=== PATIENT | male | born 1970 | race Caucasian/White ===

== ENCOUNTER 2016-09-18 03:15 | Inpatient (IN) | payer MEDICAID, OTHER ==
[~2016-09-18] VITALS: Ht 175.3 cm; Wt 120.2 kg
[2016-09-18 04:21] LABS: BASOPHILS # (AUTO) 0.04 K/uL (0.00-0.20); BASOPHILS % (AUTO) 0.4 % (0.0-2.0); EOSINOPHILS # (AUTO) 0.28 K/uL (0.00-0.70); EOSINOPHILS % (AUTO) 2.92 % (1.0-6.0); HEMATOCRIT 46.1 % (41-53); HEMOGLOBIN 15.8 g/dL (13.5-17.5); LYMPHOCYTES % (AUTO) 31.2 % (22.0-44.0); MEAN CORPUSCULAR HEMOGLOBIN 31.2 pg (26.0-34.0); MEAN CORPUSCULAR HGB CONC 34.4 G/dL (31.0-37.0); MEAN CORPUSCULAR VOLUME 91 fL (80-100); MONOCYTES # (AUTO) 0.6 K/uL (0.1-1.0); MONOCYTES % (AUTO) 6.6 % (2.0-9.0); NEUTROPHILS # (AUTO) 5.7 K/uL (1.8-7.7); NEUTROPHILS % (AUTO) 58.9 % (40.0-70.0); PLATELET COUNT (AUTO) 217 K/uL (150-450); RED BLOOD CELL COUNT(AUTO) 5.08 MIL/uL (4.50-5.90); RED CELL DISTRIBUTION WIDTH 13.2 % (11.5-14.5); WHITE BLOOD COUNT (AUTO) 9.6 K/uL (4.5-11.0)
[2016-09-18 04:28] LABS: ANION GAP 10 mmol/L (8-16); CALCIUM, TOTAL 8.6 mg/dL (8.8-10.5); CARBON DIOXIDE 26 mmol/L (22-29); CHLORIDE 103 mmol/L (98-107); CREATININE 0.98 mg/dL (0.60-1.30); GLOMERULAR FILTR. RATE CALC > 60 mL/min (>60); POTASSIUM 3.7 mmol/L (3.5-5.1); SODIUM SERUM 139 mmol/L (136-145); UREA NITROGEN, BLOOD 16 mg/dL (7-18)
[2016-09-18 04:35] LABS: ALANINE AMINOTRANSFERASE 35 U/L (12-78); ALBUMIN 3.9 g/dL (3.4-5.0); ASPARTATE AMINOTRANSFERASE 40 U/L (15-37); BILIRUBIN,TOTAL 0.4 mg/dL (0.1-1.0); TOTAL PROTEIN, SERUM 6.9 g/dL (6.4-8.2)
[2016-09-18 06:01] VITALS: BP 154/91
[2016-09-18 08:29] VITALS: BP 125/68
[2016-09-18 09:12] LABS: CHOL/HDL RATIO 5.2 (4.2-7.3)
[2016-09-18] MEDS: HALOPERIDOL 5 MG TABLET PO PRN (09:14)
[2016-09-18] MEDS: LORazepam 2 MG TABLET PO PRN (09:14)
[2016-09-18] MEDS ORDERED: ONDANSETRON HCL 4 MG TABLET PO PRN (09:15)
[2016-09-18] MEDS ORDERED: LOPERAMIDE HCL 2 MG CAPSULE PO PRN (09:15)
[2016-09-18] MEDS ORDERED: BENZOCAINE/MENTHOL LOZENGE MM PRN (09:15)
[2016-09-18] MEDS ORDERED: MAG HYDROX/AL HYDROX/SIMETH ES 30 ML SUSPENSION UDCUP PO PRN (09:15)
[2016-09-18] MEDS ORDERED: MAGNESIUM HYDROXIDE SUSPENSION 30 ML UDCUP PO PRN (09:15)
[2016-09-18] MEDS ORDERED: PETROLATUM,WHITE 71 GM JELLY TP PRN (09:15)
[2016-09-18] MEDS ORDERED: ALBUTEROL SULFATE HFA 90 MCG/PUFF 8 GM INHALER IH PRN (09:15)
[2016-09-18] MEDS ORDERED: ACETAMINOPHEN 325 MG TABLET PO PRN (09:15)
[2016-09-18] MEDS ORDERED: IBUPROFEN 600 MG TABLET PO PRN (09:15)
[2016-09-18] MEDS ORDERED: BACITRACIN 28.4 GM OINTMENT TP PRN (09:15)
[2016-09-18] MEDS ORDERED: CloNIDine HCL 0.1 MG TABLET PO PRN (09:15)
[2016-09-18 16:00] VITALS: BP 124/72
[2016-09-18] MEDS: OLANZapine 10 MG TABLET PO SCH (20:48)
[2016-09-18] MEDS: DIVALPROEX SODIUM 250 MG DR TABLET PO SCH (20:48)
[2016-09-19 05:55] VITALS: BP 128/75
[2016-09-19 08:14] LABS: BASOPHILS % (AUTO) 0.7 % (0.0-2.0); EOSINOPHILS % (AUTO) 5.1 % (1.0-6.0); HEMATOCRIT 50.5 % (41-53); HEMOGLOBIN 16.6 g/dL (13.5-17.5); LYMPHOCYTES # (AUTO) 3.5 K/uL (1.0-4.8); LYMPHOCYTES % (AUTO) 40.9 % (22.0-44.0); MEAN CORPUSCULAR HEMOGLOBIN 30.6 pg (26.0-34.0); MEAN CORPUSCULAR HGB CONC 32.8 G/dL (31.0-37.0); MEAN CORPUSCULAR VOLUME 93 fL (80-100); MONOCYTES # (AUTO) 0.5 K/uL (0.1-1.0); MONOCYTES % (AUTO) 5.5 % (2.0-9.0); NEUTROPHILS # (AUTO) 4.1 K/uL (1.8-7.7); NEUTROPHILS % (AUTO) 47.8 % (40.0-70.0); PLATELET COUNT (AUTO) 199 K/uL (150-450); RED BLOOD CELL COUNT(AUTO) 5.41 MIL/uL (4.50-5.90); RED CELL DISTRIBUTION WIDTH 13.4 % (11.5-14.5); WHITE BLOOD COUNT (AUTO) 8.6 K/uL (4.5-11.0)
[2016-09-19 08:21] VITALS: BP 111/67
[2016-09-19 08:39] LABS: ALANINE AMINOTRANSFERASE 42 U/L (12-78); ALBUMIN 3.9 g/dL (3.4-5.0); ANION GAP 8 mmol/L (8-16); ASPARTATE AMINOTRANSFERASE 45 U/L (15-37); BILIRUBIN,TOTAL 0.5 mg/dL (0.1-1.0); CALCIUM, TOTAL 8.7 mg/dL (8.8-10.5); CARBON DIOXIDE 28 mmol/L (22-29); CHLORIDE 104 mmol/L (98-107); CREATININE 1.08 mg/dL (0.60-1.30); GLOMERULAR FILTR. RATE CALC > 60 mL/min (>60); POTASSIUM 3.9 mmol/L (3.5-5.1); SODIUM SERUM 140 mmol/L (136-145); THYROID STIMULATING HORMONE 1.91 uIU/mL (0.36-3.74); TOTAL PROTEIN, SERUM 7.2 g/dL (6.4-8.2); UREA NITROGEN, BLOOD 17 mg/dL (7-18); VALPROIC ACID 65 mcg/mL (50-100)
[2016-09-19] MEDS: LORazepam 2 MG TABLET PO PRN (08:53)
[2016-09-19] MEDS: HALOPERIDOL 5 MG TABLET PO PRN (08:54)
[2016-09-19 16:04] VITALS: BP 131/65
[2016-09-19] MEDS: OLANZapine 10 MG TABLET PO SCH (20:15)
[2016-09-19] MEDS: DIVALPROEX SODIUM 250 MG DR TABLET PO SCH (20:15)
[2016-09-20] MEDS: LORazepam 2 MG TABLET PO PRN ×3 (00:08→20:28)
[2016-09-20 00:11] VITALS: BP 120/75
[2016-09-20 08:25] VITALS: BP 114/67
[2016-09-20] MEDS: HALOPERIDOL 5 MG TABLET PO PRN (09:30)
[2016-09-20 16:05] VITALS: BP 118/68
[2016-09-20] MEDS: OLANZapine 10 MG TABLET PO SCH (20:28)
[2016-09-20] MEDS: DIVALPROEX SODIUM 250 MG DR TABLET PO SCH (20:28)
[2016-09-20] MEDS: ZOLPIDEM TARTRATE 10 MG TABLET PO PRN (22:52)
[2016-09-21 06:40] VITALS: BP 115/60
[2016-09-21 08:04] VITALS: BP 133/67
[2016-09-21] MEDS: LORazepam 2 MG TABLET PO PRN ×2 (15:13→22:18)
[2016-09-21 16:00] VITALS: BP 122/65
[2016-09-21] MEDS: HALOPERIDOL 5 MG TABLET PO PRN (17:16)
[2016-09-21] MEDS: DIVALPROEX SODIUM 250 MG DR TABLET PO SCH (20:37)
[2016-09-21] MEDS: OLANZapine 10 MG TABLET PO SCH (20:38)
[2016-09-22 05:58] VITALS: BP 111/76
[2016-09-22 08:04] VITALS: BP 109/58
[2016-09-22 16:00] VITALS: BP 112/67
[2016-09-22] MEDS: LORazepam 2 MG TABLET PO PRN (20:08)
[2016-09-22] MEDS: DIVALPROEX SODIUM 250 MG DR TABLET PO SCH (20:08)
[2016-09-22] MEDS: OLANZapine 10 MG TABLET PO SCH (20:08)
[2016-09-23] MEDS: LORazepam 2 MG TABLET PO PRN (00:20)
[2016-09-23 01:14] VITALS: BP 110/64
[2016-09-23] MEDS: ZOLPIDEM TARTRATE 10 MG TABLET PO PRN (01:37)
[2016-09-23 08:23] VITALS: BP 110/77
[2016-09-23] MEDS ORDERED: OLAN20TA17 PO (11:18)
[2016-09-23] MEDS ORDERED: DIVA500T35 PO (11:19)
== END 2016-09-23 13:25 | disposition home or self-care (01) | DRG 750 ==
LOC: EEVIPCON 03:16 → EMS 03:16 → B3A 04:52
PROVIDERS: ADMIT Psychiatry & Neurology Child & Adolescent Psychiatry; ATTEND Psychiatry & Neurology Psychiatry
DX: F20.0 Paranoid schizophrenia (principal); E55.9 Vitamin D deficiency, unspecified; K59.00 Constipation, unspecified; Z72.0 Tobacco use; G47.00 Insomnia, unspecified
CPT/HCPCS: 82306; 84439; 84443; 99285; G0480

== ENCOUNTER 2016-11-15 04:44 | Emergency (ER) | payer MEDICAID, OTHER ==
[~2016-11-15] VITALS: Ht 172.7 cm; Wt 90.9 kg
[~2016-11-15 04:44] MED LIST: DIVA500T35 PO; OLAN20TA17 PO
[2016-11-15] MEDS ORDERED: LORazepam 1 MG TABLET PO ONE (05:30)
[2016-11-15] MEDS ORDERED: OLANZapine 5 MG TABLET PO ONE (05:30)
[2016-11-15 05:44] LABS: BASOPHILS % (AUTO) 0.4 % (0.0-2.0); EOSINOPHILS % (AUTO) 0.5 % (1.0-6.0); HEMATOCRIT 45.8 % (41-53); LYMPHOCYTES # (AUTO) 1.8 K/uL (1.0-4.8); LYMPHOCYTES % (AUTO) 18.9 % (22.0-44.0); MEAN CORPUSCULAR HEMOGLOBIN 31.8 pg (26.0-34.0); MEAN CORPUSCULAR HGB CONC 34.9 G/dL (31.0-37.0); MEAN CORPUSCULAR VOLUME 91 fL (80-100); MONOCYTES # (AUTO) 0.9 K/uL (0.1-1.0); MONOCYTES % (AUTO) 9.3 % (2.0-9.0); NEUTROPHILS # (AUTO) 6.6 K/uL (1.8-7.7); NEUTROPHILS % (AUTO) 70.9 % (40.0-70.0); PLATELET COUNT (AUTO) 242 K/uL (150-450); RED BLOOD CELL COUNT(AUTO) 5.02 MIL/uL (4.50-5.90); WHITE BLOOD COUNT (AUTO) 9.3 K/uL (4.5-11.0)
[2016-11-15 05:48] LABS: ANION GAP 13 mmol/L (8-16); CALCIUM, TOTAL 9.2 mg/dL (8.8-10.5); CARBON DIOXIDE 23 mmol/L (22-29); CHLORIDE 102 mmol/L (98-107); CREATININE 1.11 mg/dL (0.60-1.30); GLOMERULAR FILTR. RATE CALC > 60 mL/min (>60); POTASSIUM 3.3 mmol/L (3.5-5.1); SODIUM SERUM 138 mmol/L (136-145); UREA NITROGEN, BLOOD 19 mg/dL (7-18)
[2016-11-15 05:54] LABS: ALANINE AMINOTRANSFERASE 35 U/L (12-78); ALBUMIN 4.1 g/dL (3.4-5.0); ASPARTATE AMINOTRANSFERASE 20 U/L (15-37); BILIRUBIN,TOTAL 0.5 mg/dL (0.1-1.0); TOTAL PROTEIN, SERUM 7.2 g/dL (6.4-8.2); VALPROIC ACID < 3 mcg/mL (50-100)
[2016-11-15 06:14] VITALS: BP 129/82
[2016-11-15] MEDS ORDERED: POTASSIUM CHLORIDE 20 MEQ ER TABLET PO ONE (06:30)
== END 2016-11-15 06:48 | disposition home or self-care (01) ==
LOC: EMS 04:46
DX: F20.0 Paranoid schizophrenia (principal); F17.210 Nicotine dependence, cigarettes, uncomplicated
CPT/HCPCS: 36415; 80053; 80164; 80307; 85025; 99284; 99406; G0480

== ENCOUNTER 2016-11-17 02:55 | Emergency (ER) | payer OTHER ==
[~2016-11-17] VITALS: Ht 175.3 cm; Wt 118.2 kg
[2016-11-17 03:10] VITALS: BP 132/95
[2016-11-17] MEDS ORDERED: LORazepam 1 MG TABLET PO ONE (04:00)
[2016-11-17] MEDS ORDERED: OLANZapine 5 MG TABLET PO ONE (04:00)
== END 2016-11-17 04:57 | disposition home or self-care (01) ==
LOC: EMS 02:56
DX: F41.9 Anxiety disorder, unspecified (principal); F20.9 Schizophrenia, unspecified; F17.210 Nicotine dependence, cigarettes, uncomplicated; F12.90 Cannabis use, unspecified, uncomplicated
CPT/HCPCS: 99284; 99406

== ENCOUNTER 2017-02-15 15:52 | Inpatient (IN) | payer MEDICAID ==
[~2017-02-15] VITALS: Ht 175.3 cm; Wt 107.5 kg
[2017-02-15] MEDS ORDERED: INFLUENZA VIRUS VACCINE QVS 2017-18 (3YR+)/PF 60 MCG/0.5 ML SYRINGE IM ONE (17:30)
[2017-02-15 19:12] VITALS: BP 111/66
[2017-02-15] MEDS ORDERED: IBUPROFEN 600 MG TABLET PO PRN (21:00)
[2017-02-16 07:10] VITALS: BP 137/62
[2017-02-16 08:23] LABS: BASOPHILS % (AUTO) 0.7 % (0.0-2.0); EOSINOPHILS % (AUTO) 2.1 % (1.0-6.0); HEMATOCRIT 50.3 % (41-53); HEMOGLOBIN 17.2 g/dL (13.5-17.5); LYMPHOCYTES # (AUTO) 2.4 K/uL (1.0-4.8); LYMPHOCYTES % (AUTO) 35.7 % (22.0-44.0); MEAN CORPUSCULAR HGB CONC 34.2 G/dL (31.0-37.0); MEAN CORPUSCULAR VOLUME 94 fL (80-100); MONOCYTES # (AUTO) 0.4 K/uL (0.1-1.0); MONOCYTES % (AUTO) 5.2 % (2.0-9.0); NEUTROPHILS # (AUTO) 3.9 K/uL (1.8-7.7); NEUTROPHILS % (AUTO) 56.3 % (40.0-70.0); PLATELET COUNT (AUTO) 247 K/uL (150-450); RED BLOOD CELL COUNT(AUTO) 5.38 MIL/uL (4.50-5.90); RED CELL DISTRIBUTION WIDTH 13.6 % (11.5-14.5)
[2017-02-16 08:26] LABS: HEMOGLOBIN A1C 5.1 % (4.5-6.2)
[2017-02-16 08:31] VITALS: BP 110/72
[2017-02-16 08:32] LABS: ALANINE AMINOTRANSFERASE 29 U/L (12-78); ALBUMIN 4.2 g/dL (3.4-5.0); ALKALINE PHOSPHATASE 51 U/L (46-116); ASPARTATE AMINOTRANSFERASE 10 U/L (15-37); BILIRUBIN,TOTAL 0.8 mg/dL (0.1-1.0); CALCIUM, TOTAL 8.9 mg/dL (8.8-10.5); CARBON DIOXIDE 30 mmol/L (22-29); CHOL/HDL RATIO 4.1 (4.2-7.3); CHOLESTEROL 162 mg/dL (131-200); CREATININE 0.95 mg/dL (0.60-1.30); FREE T4 (FREE THYROXINE) 1.03 ng/dL (0.76-1.46); GLOMERULAR FILTR. RATE CALC > 60 mL/min (>60); GLUCOSE,RANDOM 84 mg/dL (70-110); HDL CHOLESTEROL 40 mg/dL (40-60); LDL CHOL (CALC.) 94 mg/dL (0-130); THYROID STIMULATING HORMONE 1.16 uIU/mL (0.36-3.74); TOTAL PROTEIN, SERUM 6.9 g/dL (6.4-8.2); TRIGLYCERIDES 140 mg/dL (15-150); UREA NITROGEN, BLOOD 15 mg/dL (7-18)
[2017-02-16 08:37] LABS: ANION GAP 6 mmol/L (8-16); CHLORIDE 104 mmol/L (98-107); POTASSIUM 4.3 mmol/L (3.5-5.1); SODIUM SERUM 140 mmol/L (136-145)
[2017-02-16] MEDS: NICOTINE 21 MG/24 HOUR PATCH TD SCH (09:02)
[2017-02-16] MEDS ORDERED: CloNIDine HCL 0.1 MG TABLET PO PRN (09:15)
[2017-02-16] MEDS ORDERED: ONDANSETRON HCL 4 MG TABLET PO PRN (09:15)
[2017-02-16] MEDS ORDERED: MAG HYDROX/AL HYDROX/SIMETH ES 30 ML SUSPENSION UDCUP PO PRN (09:15)
[2017-02-16] MEDS ORDERED: ACETAMINOPHEN 325 MG TABLET PO PRN (09:15)
[2017-02-16] MEDS ORDERED: LOPERAMIDE HCL 2 MG CAPSULE PO PRN (09:15)
[2017-02-16] MEDS ORDERED: MAGNESIUM HYDROXIDE SUSPENSION 30 ML UDCUP PO PRN (09:15)
[2017-02-16] MEDS ORDERED: BENZOCAINE/MENTHOL LOZENGE MM PRN (09:15)
[2017-02-16] MEDS ORDERED: PETROLATUM,WHITE 71 GM JELLY TP PRN (09:15)
[2017-02-16] MEDS ORDERED: ALBUTEROL SULFATE HFA 90 MCG/PUFF 8 GM INHALER IH PRN (09:15)
[2017-02-16] MEDS: LORazepam 2 MG TABLET PO PRN ×2 (10:47→19:13)
[2017-02-16] MEDS: TERBINAFINE HCL 1% 30 GM CREAM TP SCH (11:56)
[2017-02-16] MEDS: MAGNESIUM SULFATE 454 GM BOX TP SCH (11:56)
[2017-02-16] MEDS: HALOPERIDOL 5 MG TABLET PO PRN ×2 (12:19→19:13)
[2017-02-16 16:00] VITALS: BP 115/71
[2017-02-16] MEDS: DIVALPROEX SODIUM 250 MG ER TABLET PO SCH (20:40)
[2017-02-16] MEDS: ZOLPIDEM TARTRATE 10 MG TABLET PO PRN (20:41)
[2017-02-16] MEDS: OLANZapine 10 MG TABLET PO SCH (20:41)
[2017-02-17 06:52] VITALS: BP 122/78
[2017-02-17 08:22] VITALS: BP 120/74
[2017-02-17] MEDS: TERBINAFINE HCL 1% 30 GM CREAM TP SCH (09:54)
[2017-02-17] MEDS: NICOTINE 21 MG/24 HOUR PATCH TD SCH (09:54)
[2017-02-17] MEDS: MAGNESIUM SULFATE 454 GM BOX TP SCH (09:54)
[2017-02-17] MEDS: LORazepam 2 MG TABLET PO PRN ×2 (10:41→18:53)
[2017-02-17 16:06] VITALS: BP 109/60
[2017-02-17] MEDS: HALOPERIDOL 5 MG TABLET PO PRN (18:53)
[2017-02-17] MEDS: ZOLPIDEM TARTRATE 10 MG TABLET PO PRN (20:13)
[2017-02-17] MEDS: OLANZapine 10 MG TABLET PO SCH (20:13)
[2017-02-17] MEDS: DIVALPROEX SODIUM 250 MG ER TABLET PO SCH (20:13)
[2017-02-18 00:03] VITALS: BP 117/68
[2017-02-18] MEDS: LORazepam 2 MG TABLET PO PRN ×4 (00:07→20:24)
[2017-02-18] MEDS: BACITRACIN 28.4 GM OINTMENT TP PRN (02:43)
[2017-02-18 08:21] VITALS: BP 110/66
[2017-02-18] MEDS: HALOPERIDOL 5 MG TABLET PO PRN ×2 (08:36→15:44)
[2017-02-18] MEDS: NICOTINE 21 MG/24 HOUR PATCH TD SCH (08:36)
[2017-02-18] MEDS: MAGNESIUM SULFATE 454 GM BOX TP SCH (08:36)
[2017-02-18] MEDS: TERBINAFINE HCL 1% 30 GM CREAM TP SCH (08:36)
[2017-02-18 16:00] VITALS: BP 129/65
[2017-02-18] MEDS: OLANZapine 10 MG TABLET PO SCH (20:24)
[2017-02-18] MEDS: DIVALPROEX SODIUM 250 MG ER TABLET PO SCH (20:24)
[2017-02-18] MEDS: ZOLPIDEM TARTRATE 10 MG TABLET PO PRN (20:24)
[2017-02-19] MEDS: LORazepam 2 MG TABLET PO PRN ×3 (00:35→23:58)
[2017-02-19] MEDS: HALOPERIDOL 5 MG TABLET PO PRN ×2 (00:35→23:58)
[2017-02-19 00:49] VITALS: BP 132/76
[2017-02-19 08:15] VITALS: BP 122/69
[2017-02-19] MEDS: NICOTINE 21 MG/24 HOUR PATCH TD SCH (08:26)
[2017-02-19] MEDS: MAGNESIUM SULFATE 454 GM BOX TP SCH (08:26)
[2017-02-19] MEDS: TERBINAFINE HCL 1% 30 GM CREAM TP SCH (08:26)
[2017-02-19 16:22] VITALS: BP 130/74
[2017-02-19] MEDS: DIVALPROEX SODIUM 250 MG ER TABLET PO SCH (20:09)
[2017-02-19] MEDS: OLANZapine 10 MG TABLET PO SCH (20:09)
[2017-02-19] MEDS: ZOLPIDEM TARTRATE 10 MG TABLET PO PRN (20:10)
[2017-02-20 01:33] VITALS: BP 128/65
[2017-02-20] MEDS: IBUPROFEN 600 MG TABLET PO PRN (04:22)
[2017-02-20 09:08] VITALS: BP 96/57
[2017-02-20] MEDS: MAGNESIUM SULFATE 454 GM BOX TP SCH (09:25)
[2017-02-20] MEDS: TERBINAFINE HCL 1% 30 GM CREAM TP SCH (09:25)
[2017-02-20] MEDS: NICOTINE 21 MG/24 HOUR PATCH TD SCH (09:25)
[2017-02-20 16:39] VITALS: BP 127/75
[2017-02-20] MEDS: DIVALPROEX SODIUM 250 MG ER TABLET PO SCH (20:40)
[2017-02-20] MEDS: OLANZapine 10 MG TABLET PO SCH (20:40)
[2017-02-20] MEDS: ZOLPIDEM TARTRATE 10 MG TABLET PO PRN (20:40)
[2017-02-21 00:14] VITALS: BP 116/80
[2017-02-21] MEDS: IBUPROFEN 600 MG TABLET PO PRN (00:17)
[2017-02-21] MEDS: HALOPERIDOL 5 MG TABLET PO PRN (02:51)
[2017-02-21] MEDS: LORazepam 2 MG TABLET PO PRN ×2 (02:51→20:19)
[2017-02-21 08:22] VITALS: BP 128/82
[2017-02-21] MEDS: NICOTINE 21 MG/24 HOUR PATCH TD SCH (09:02)
[2017-02-21] MEDS: MAGNESIUM SULFATE 454 GM BOX TP SCH (09:02)
[2017-02-21] MEDS: TERBINAFINE HCL 1% 30 GM CREAM TP SCH (09:02)
[2017-02-21 16:00] VITALS: BP 118/73
[2017-02-21] MEDS: ZOLPIDEM TARTRATE 10 MG TABLET PO PRN (20:19)
[2017-02-21] MEDS: DIVALPROEX SODIUM 250 MG ER TABLET PO SCH (20:19)
[2017-02-21] MEDS: OLANZapine 10 MG TABLET PO SCH (20:19)
[2017-02-22] MEDS: LORazepam 2 MG TABLET PO PRN ×2 (01:44→20:33)
[2017-02-22] MEDS: HALOPERIDOL 5 MG TABLET PO PRN (01:44)
[2017-02-22 02:40] VITALS: BP 128/77
[2017-02-22 08:17] VITALS: BP 115/64
[2017-02-22] MEDS: NICOTINE 21 MG/24 HOUR PATCH TD SCH (09:58)
[2017-02-22] MEDS: TERBINAFINE HCL 1% 30 GM CREAM TP SCH (11:32)
[2017-02-22 16:00] VITALS: BP 112/67
[2017-02-22] MEDS: DIVALPROEX SODIUM 250 MG ER TABLET PO SCH (20:33)
[2017-02-22] MEDS: ZOLPIDEM TARTRATE 10 MG TABLET PO PRN (20:33)
[2017-02-22] MEDS: OLANZapine 10 MG TABLET PO SCH (20:33)
[2017-02-23 00:03] VITALS: BP 125/70
[2017-02-23] MEDS: HALOPERIDOL 5 MG TABLET PO PRN ×2 (00:36→18:36)
[2017-02-23 08:15] VITALS: BP 110/67
[2017-02-23] MEDS: TERBINAFINE HCL 1% 30 GM CREAM TP SCH (09:18)
[2017-02-23] MEDS: NICOTINE 21 MG/24 HOUR PATCH TD SCH (09:18)
[2017-02-23 16:00] VITALS: BP 117/68
[2017-02-23] MEDS: LORazepam 2 MG TABLET PO PRN (18:36)
[2017-02-23] MEDS: OLANZapine 10 MG TABLET PO SCH (20:28)
[2017-02-23] MEDS: DIVALPROEX SODIUM 250 MG ER TABLET PO SCH (20:28)
[2017-02-23] MEDS: ZOLPIDEM TARTRATE 10 MG TABLET PO PRN (21:57)
[2017-02-24 01:37] VITALS: BP 114/71
[2017-02-24] MEDS: TERBINAFINE HCL 1% 30 GM CREAM TP SCH (08:13)
[2017-02-24] MEDS: NICOTINE 21 MG/24 HOUR PATCH TD SCH (08:14)
[2017-02-24 08:15] VITALS: BP 100/59
[2017-02-24] MEDS: LORazepam 2 MG TABLET PO PRN ×2 (12:24→16:41)
[2017-02-24 16:38] VITALS: BP 112/69
[2017-02-24] MEDS: HALOPERIDOL 5 MG TABLET PO PRN (16:41)
[2017-02-24] MEDS: DIVALPROEX SODIUM 250 MG ER TABLET PO SCH (21:28)
[2017-02-24] MEDS: OLANZapine 10 MG TABLET PO SCH (21:29)
[2017-02-24] MEDS: ZOLPIDEM TARTRATE 10 MG TABLET PO PRN (21:33)
[2017-02-25] MEDS: LORazepam 2 MG TABLET PO PRN (00:16)
[2017-02-25] MEDS: HALOPERIDOL 5 MG TABLET PO PRN ×2 (00:16→20:13)
[2017-02-25 00:17] VITALS: BP 120/79
[2017-02-25 08:42] VITALS: BP 118/80
[2017-02-25] MEDS: NICOTINE 21 MG/24 HOUR PATCH TD SCH (09:53)
[2017-02-25] MEDS: TERBINAFINE HCL 1% 30 GM CREAM TP SCH (09:54)
[2017-02-25 16:00] VITALS: BP 119/70
[2017-02-25] MEDS: DIVALPROEX SODIUM 250 MG ER TABLET PO SCH (20:10)
[2017-02-25] MEDS: OLANZapine 10 MG TABLET PO SCH (20:10)
[2017-02-25] MEDS: ZOLPIDEM TARTRATE 10 MG TABLET PO PRN (21:01)
[2017-02-26 00:09] VITALS: BP 106/79
[2017-02-26] MEDS: HALOPERIDOL 5 MG TABLET PO PRN ×2 (00:10→10:43)
[2017-02-26] MEDS: LORazepam 2 MG TABLET PO PRN ×3 (00:10→20:30)
[2017-02-26 08:22] VITALS: BP 108/66
[2017-02-26] MEDS: TERBINAFINE HCL 1% 30 GM CREAM TP SCH (09:16)
[2017-02-26] MEDS: NICOTINE 21 MG/24 HOUR PATCH TD SCH (09:18)
[2017-02-26] MEDS: BACITRACIN 28.4 GM OINTMENT TP PRN (10:43)
[2017-02-26 16:00] VITALS: BP 118/68
[2017-02-26] MEDS: DIVALPROEX SODIUM 250 MG ER TABLET PO SCH (20:29)
[2017-02-26] MEDS: OLANZapine 10 MG TABLET PO SCH (20:30)
[2017-02-26] MEDS: ZOLPIDEM TARTRATE 10 MG TABLET PO PRN (20:30)
[2017-02-27 00:12] VITALS: BP 105/74
[2017-02-27] MEDS: LORazepam 2 MG TABLET PO PRN (00:20)
[2017-02-27] MEDS: HALOPERIDOL 5 MG TABLET PO PRN (00:21)
[2017-02-27 08:22] VITALS: BP 128/78
[2017-02-27] MEDS: NICOTINE 21 MG/24 HOUR PATCH TD SCH (08:57)
[2017-02-27] MEDS: TERBINAFINE HCL 1% 30 GM CREAM TP SCH (08:59)
== END 2017-02-27 15:40 | disposition home or self-care (01) | DRG 750 ==
LOC: B3A 17:34
DX: F20.0 Paranoid schizophrenia (principal); E55.9 Vitamin D deficiency, unspecified; Z59.0 Homelessness; B35.3 Tinea pedis; F17.200 Nicotine dependence, unspecified, uncomplicated; F15.90 Other stimulant use, unspecified, uncomplicated; K59.00 Constipation, unspecified; G47.00 Insomnia, unspecified; Z71.6 Tobacco abuse counseling; Z72.89 Other problems related to lifestyle; Z79.899 Other long term (current) drug therapy
CPT/HCPCS: 83036; 84439; 84443; 87081; 90471

== ENCOUNTER 2017-10-19 14:31 | Inpatient (IN) | payer MEDICAID, OTHER ==
[~2017-10-19] VITALS: Ht 170.2 cm; Wt 106.5 kg
[~2017-10-19 14:31] MED LIST changes: -DIVA500T35 PO; +DIVA500T52 PO; +DSS100 PO; +OLAN10TA22 PO; -OLAN20TA17 PO; +OMEP20 PO; +VITAD1000 PO
[2017-10-19] MEDS ORDERED: OLAN5TAB2 PO (16:16)
[2017-10-19] MEDS ORDERED: SERT50TA12 PO (16:16)
[2017-10-19 16:42] LABS: BASOPHILS % (AUTO) 0.8 % (0.0-2.0); EOSINOPHILS % (AUTO) 2.2 % (1.0-6.0); HEMATOCRIT 45.5 % (41-53); HEMOGLOBIN 15.9 g/dL (13.5-17.5); LYMPHOCYTES # (AUTO) 2.1 K/uL (1.0-4.8); LYMPHOCYTES % (AUTO) 25.6 % (22.0-44.0); MEAN CORPUSCULAR HEMOGLOBIN 32.1 pg (26.0-34.0); MEAN CORPUSCULAR HGB CONC 34.9 G/dL (31.0-37.0); MEAN CORPUSCULAR VOLUME 92 fL (80-100); MONOCYTES # (AUTO) 0.6 K/uL (0.1-1.0); MONOCYTES % (AUTO) 7.5 % (2.0-9.0); NEUTROPHILS # (AUTO) 5.3 K/uL (1.8-7.7); NEUTROPHILS % (AUTO) 63.9 % (40.0-70.0); PLATELET COUNT (AUTO) 231 K/uL (150-450); RED BLOOD CELL COUNT(AUTO) 4.94 MIL/uL (4.50-5.90); RED CELL DISTRIBUTION WIDTH 13.3 % (11.5-14.5)
[2017-10-19 16:55] LABS: ANION GAP 5 mmol/L (8-16); CALCIUM, TOTAL 8.5 mg/dL (8.8-10.5); CARBON DIOXIDE 28 mmol/L (22-29); CHLORIDE 108 mmol/L (98-107); CREATININE 0.95 mg/dL (0.60-1.30); GLOMERULAR FILTR. RATE CALC > 60 mL/min (>60); GLUCOSE,RANDOM 95 mg/dL (70-110); POTASSIUM 3.8 mmol/L (3.5-5.1); SODIUM SERUM 141 mmol/L (136-145); UREA NITROGEN, BLOOD 25 mg/dL (7-18)
[2017-10-19 17:01] LABS: ALANINE AMINOTRANSFERASE 49 U/L (12-78); ALBUMIN 4.1 g/dL (3.4-5.0); ALKALINE PHOSPHATASE 58 U/L (46-116); ASPARTATE AMINOTRANSFERASE 32 U/L (15-37); BILIRUBIN,TOTAL 0.7 mg/dL (0.1-1.0)
[2017-10-19 20:11] LABS: APPEARANCE,URINE CLEAR (CLEAR); BILIRUBIN,URINE NEGATIVE (NEGATIVE); GLUCOSE, URINE (UA) NEGATIVE (NEGATIVE); KETONES,URINE NEGATIVE (NEGATIVE); LEUKOCYTE ESTERASE ,URINE NEGATIVE (NEGATIVE); NITRATE,URINE NEGATIVE (NEGATIVE); OCCULT BLOOD,URINE NEGATIVE (NEGATIVE); PH,URINE 6.5 (5.0-8.0); PROTEIN,URINE NEGATIVE (NEGATIVE)
[2017-10-19 20:17] LABS: AMPHET/METH SCREEN,URINE NEGATIVE (NEGATIVE); BARBITURATE SCREEN, URINE NEGATIVE (NEGATIVE); BENZODIAZEPINES SCREEN,URINE NEGATIVE (NEGATIVE); CANNABINOID SCREEN,URINE POSITIVE (NEGATIVE); COCAINE SCREEN,URINE NEGATIVE (NEGATIVE); METHADONE SCREEN, URINE NEGATIVE (NEGATIVE); OPIATE SCREEN,URINE NEGATIVE (NEGATIVE)
[2017-10-19 20:19] LABS: PHENCYCLIDINE SCREEN,URINE NEGATIVE (NEGATIVE)
[2017-10-19] MEDS ORDERED: ZOLPIDEM TARTRATE 10 MG TABLET PO PRN (23:00)
[2017-10-19] MEDS ORDERED: LORazepam 2 MG TABLET PO PRN (23:00)
[2017-10-19] MEDS ORDERED: HALOPERIDOL 5 MG TABLET PO PRN (23:00)
[2017-10-20] MEDS: HALOPERIDOL 5 MG TABLET PO PRN (08:56)
[2017-10-20] MEDS: LORazepam 2 MG TABLET PO PRN (08:56)
[2017-10-20] MEDS ORDERED: LORazepam 2 MG/ML VIAL ONE (12:37)
[2017-10-20] MEDS ORDERED: HALOPERIDOL LACTATE 5 MG/ML VIAL ONE (12:38)
[2017-10-20] MEDS ORDERED: DiphenhydrAMINE HCL 50 MG/ML VIAL ONE (12:38)
[2017-10-20] MEDS ORDERED: DiphenhydrAMINE HCL 50 MG/ML VIAL IM ONE (12:45)
[2017-10-20] MEDS ORDERED: HALOPERIDOL LACTATE 5 MG/ML VIAL IM ONE (12:45)
[2017-10-20] MEDS ORDERED: LORazepam 2 MG/ML VIAL IM ONE (12:45)
[2017-10-20] MEDS ORDERED: BENZOCAINE/MENTHOL LOZENGE MM PRN (20:15)
[2017-10-20] MEDS ORDERED: PETROLATUM,WHITE 71 GM JELLY TP PRN (20:15)
[2017-10-20] MEDS ORDERED: CloNIDine HCL 0.1 MG TABLET PO PRN (20:15)
[2017-10-20] MEDS ORDERED: ONDANSETRON HCL 4 MG TABLET PO PRN (20:15)
[2017-10-20] MEDS ORDERED: MAG HYDROX/AL HYDROX/SIMETH ES 30 ML SUSPENSION UDCUP PO PRN (20:15)
[2017-10-20] MEDS ORDERED: ALBUTEROL SULFATE HFA 90 MCG/PUFF 8 GM INHALER IH PRN (20:15)
[2017-10-20] MEDS ORDERED: BACITRACIN 28.4 GM OINTMENT TP PRN (20:15)
[2017-10-20] MEDS ORDERED: MAGNESIUM HYDROXIDE SUSPENSION 30 ML UDCUP PO PRN (20:15)
[2017-10-21 08:00] VITALS: BP 120/77
[2017-10-21] MEDS: OMEPRAZOLE 20 MG CAPSULE PO SCH ×2 (08:20→09:00)
[2017-10-21] MEDS: DOCUSATE SODIUM 100 MG CAPSULE PO SCH ×2 (08:20→09:00)
[2017-10-21] MEDS ORDERED: LORazepam 2 MG/ML VIAL ONE (12:12)
[2017-10-21] MEDS ORDERED: DiphenhydrAMINE HCL 50 MG/ML VIAL IM ONE ×2 (12:15)
[2017-10-21] MEDS ORDERED: HALOPERIDOL LACTATE 5 MG/ML VIAL IM ONE ×2 (12:15)
[2017-10-21] MEDS ORDERED: LORazepam 2 MG/ML VIAL IM ONE ×2 (12:15)
[2017-10-21] MEDS: OLANZapine 2.5 MG TABLET PO SCH (17:45)
[2017-10-22] MEDS ORDERED: DiphenhydrAMINE HCL 50 MG/ML VIAL IM ONE (03:30)
[2017-10-22] MEDS ORDERED: HALOPERIDOL LACTATE 5 MG/ML VIAL IM ONE (03:30)
[2017-10-22] MEDS ORDERED: LORazepam 2 MG/ML VIAL IM ONE (03:30)
[2017-10-22] MEDS ORDERED: DiphenhydrAMINE HCL 50 MG/ML VIAL ONE (03:34)
[2017-10-22] MEDS ORDERED: LORazepam 2 MG/ML VIAL ONE (03:34)
[2017-10-22] MEDS ORDERED: HALOPERIDOL LACTATE 5 MG/ML VIAL ONE (03:34)
[2017-10-22] MEDS: OMEPRAZOLE 20 MG CAPSULE PO SCH (08:35)
[2017-10-22] MEDS: OLANZapine 2.5 MG TABLET PO SCH ×2 (08:35→16:06)
[2017-10-22] MEDS: BuPROPion HCL XL 150 MG ER TABLET PO SCH (08:35)
[2017-10-22] MEDS: LORazepam 2 MG TABLET PO PRN (16:06)
[2017-10-23] MEDS: LORazepam 2 MG TABLET PO PRN ×2 (02:51→16:18)
[2017-10-23] MEDS: ZOLPIDEM TARTRATE 10 MG TABLET PO PRN (02:51)
[2017-10-23] MEDS: HALOPERIDOL 5 MG TABLET PO PRN (04:06)
[2017-10-23 08:00] VITALS: BP 117/80
[2017-10-23] MEDS: OLANZapine 2.5 MG TABLET PO SCH ×2 (08:39→16:18)
[2017-10-23] MEDS: OMEPRAZOLE 20 MG CAPSULE PO SCH (08:39)
[2017-10-23] MEDS: BuPROPion HCL XL 150 MG ER TABLET PO SCH (08:39)
[2017-10-23] MEDS ORDERED: DiphenhydrAMINE HCL 50 MG/ML VIAL ONE (20:56)
[2017-10-23] MEDS ORDERED: LORazepam 2 MG/ML VIAL ONE (20:56)
[2017-10-23] MEDS ORDERED: HALOPERIDOL LACTATE 5 MG/ML VIAL ONE (20:56)
[2017-10-23] MEDS ORDERED: DiphenhydrAMINE HCL 50 MG/ML VIAL IM ONE (21:00)
[2017-10-23] MEDS ORDERED: LORazepam 2 MG/ML VIAL IM ONE (21:00)
[2017-10-23] MEDS ORDERED: HALOPERIDOL LACTATE 5 MG/ML VIAL IM ONE (21:00)
[2017-10-24 08:13] VITALS: BP 106/53
[2017-10-24] MEDS: OLANZapine 2.5 MG TABLET PO SCH ×2 (08:35→15:30)
[2017-10-24] MEDS: OMEPRAZOLE 20 MG CAPSULE PO SCH (08:35)
[2017-10-24] MEDS: BuPROPion HCL XL 150 MG ER TABLET PO SCH (08:35)
[2017-10-24] MEDS: LORazepam 2 MG TABLET PO PRN (15:55)
[2017-10-24 16:11] VITALS: BP 110/64
[2017-10-24] MEDS ORDERED: HALOPERIDOL LACTATE 5 MG/ML VIAL ONE (17:40)
[2017-10-24] MEDS ORDERED: LORazepam 2 MG/ML VIAL ONE (17:40)
[2017-10-24] MEDS ORDERED: DiphenhydrAMINE HCL 50 MG/ML VIAL ONE (17:40)
[2017-10-24] MEDS ORDERED: DiphenhydrAMINE HCL 50 MG/ML VIAL IM ONE (17:45)
[2017-10-24] MEDS ORDERED: HALOPERIDOL LACTATE 5 MG/ML VIAL IM ONE ×2 (17:45→18:30)
[2017-10-24] MEDS ORDERED: LORazepam 2 MG/ML VIAL IM ONE ×2 (17:45→18:30)
[2017-10-24] MEDS: HALOPERIDOL 5 MG TABLET PO SCH (21:00)
[2017-10-25] MEDS: OMEPRAZOLE 20 MG CAPSULE PO SCH (08:30)
[2017-10-25] MEDS: DIVALPROEX SODIUM 500 MG DR TABLET PO SCH ×2 (08:30→16:10)
[2017-10-25] MEDS: LITHIUM CARBONATE 300 MG CAPSULE PO SCH ×2 (08:30→16:11)
[2017-10-25] MEDS: LORazepam 2 MG TABLET PO PRN (16:10)
[2017-10-25 16:39] VITALS: BP 141/65
[2017-10-25] MEDS ORDERED: HALOPERIDOL LACTATE 5 MG/ML VIAL IM ONE (20:15)
[2017-10-25] MEDS: HALOPERIDOL 5 MG TABLET PO SCH (20:17)
[2017-10-26] MEDS: DIVALPROEX SODIUM 500 MG DR TABLET PO SCH ×2 (10:17→16:14)
[2017-10-26] MEDS: LORazepam 2 MG TABLET PO PRN ×2 (10:17→20:52)
[2017-10-26] MEDS: LITHIUM CARBONATE 300 MG CAPSULE PO SCH ×2 (10:17→16:14)
[2017-10-26] MEDS: OMEPRAZOLE 20 MG CAPSULE PO SCH (10:17)
[2017-10-26] MEDS: HALOPERIDOL 5 MG TABLET PO SCH (20:51)
[2017-10-27] MEDS: ZOLPIDEM TARTRATE 10 MG TABLET PO PRN (01:44)
[2017-10-27] MEDS: LORazepam 2 MG TABLET PO PRN ×3 (01:44→15:53)
[2017-10-27] MEDS: NICOTINE 21 MG/24 HOUR PATCH TD SCH (07:35)
[2017-10-27] MEDS: DIVALPROEX SODIUM 500 MG DR TABLET PO SCH ×2 (07:35→16:13)
[2017-10-27] MEDS: LITHIUM CARBONATE 300 MG CAPSULE PO SCH ×2 (07:35→16:13)
[2017-10-27] MEDS: OMEPRAZOLE 20 MG CAPSULE PO SCH (07:35)
[2017-10-27 08:05] VITALS: BP 89/66
[2017-10-27 17:57] VITALS: BP 131/96
[2017-10-27] MEDS: HALOPERIDOL 5 MG TABLET PO SCH (22:00)
[2017-10-28] MEDS: ZOLPIDEM TARTRATE 10 MG TABLET PO PRN (01:30)
[2017-10-28] MEDS: LORazepam 2 MG TABLET PO PRN ×4 (01:30→20:25)
[2017-10-28 06:59] LABS: LITHIUM < 0.20 mmol/L (0.60-1.20)
[2017-10-28 07:37] LABS: VALPROIC ACID 22 mcg/mL (50-100)
[2017-10-28] MEDS: OMEPRAZOLE 20 MG CAPSULE PO SCH (08:34)
[2017-10-28] MEDS: LITHIUM CARBONATE 300 MG CAPSULE PO SCH ×2 (08:34→16:02)
[2017-10-28] MEDS: DIVALPROEX SODIUM 500 MG DR TABLET PO SCH ×2 (08:34→16:01)
[2017-10-28] MEDS: NICOTINE 21 MG/24 HOUR PATCH TD SCH (08:40)
[2017-10-28 16:30] VITALS: BP 128/84
[2017-10-28] MEDS: HALOPERIDOL 5 MG TABLET PO SCH (20:25)
[2017-10-29] MEDS: ZOLPIDEM TARTRATE 10 MG TABLET PO PRN (02:44)
[2017-10-29] MEDS: LORazepam 2 MG TABLET PO PRN ×3 (02:44→20:15)
[2017-10-29 08:10] VITALS: BP 116/62
[2017-10-29] MEDS: LITHIUM CARBONATE 300 MG CAPSULE PO SCH ×2 (08:25→17:45)
[2017-10-29] MEDS: OMEPRAZOLE 20 MG CAPSULE PO SCH (08:25)
[2017-10-29] MEDS: DIVALPROEX SODIUM 500 MG DR TABLET PO SCH ×2 (08:25→17:45)
[2017-10-29] MEDS: NICOTINE 21 MG/24 HOUR PATCH TD SCH (08:29)
[2017-10-29 17:00] VITALS: BP 119/73
[2017-10-29] MEDS ORDERED: HALOPERIDOL 10 MG TABLET PO SCH (21:00)
[2017-10-30] MEDS: ZOLPIDEM TARTRATE 10 MG TABLET PO PRN (00:56)
[2017-10-30] MEDS: LORazepam 2 MG TABLET PO PRN ×3 (00:56→19:12)
[2017-10-30] MEDS: DIVALPROEX SODIUM 500 MG DR TABLET PO SCH ×2 (08:06→16:56)
[2017-10-30] MEDS: OMEPRAZOLE 20 MG CAPSULE PO SCH (08:06)
[2017-10-30] MEDS: LITHIUM CARBONATE 300 MG CAPSULE PO SCH ×2 (08:06→16:56)
[2017-10-30] MEDS: NICOTINE 21 MG/24 HOUR PATCH TD SCH (08:10)
[2017-10-30] MEDS ORDERED: HALOPERIDOL LACTATE 5 MG/ML VIAL ONE (08:28)
[2017-10-30] MEDS ORDERED: LORazepam 2 MG/ML VIAL ONE (08:28)
[2017-10-30] MEDS ORDERED: DiphenhydrAMINE HCL 50 MG/ML VIAL ONE (08:28)
[2017-10-30] MEDS ORDERED: HALOPERIDOL LACTATE 5 MG/ML VIAL IM ONE (08:30)
[2017-10-30] MEDS ORDERED: DiphenhydrAMINE HCL 50 MG/ML VIAL IM ONE (08:30)
[2017-10-30] MEDS ORDERED: LORazepam 2 MG/ML VIAL IM ONE (08:30)
[2017-10-30] MEDS: HALOPERIDOL 10 MG TABLET PO SCH (20:05)
[2017-10-31] MEDS: LORazepam 2 MG TABLET PO PRN ×3 (04:21→16:41)
[2017-10-31] MEDS: NICOTINE 21 MG/24 HOUR PATCH TD SCH (09:06)
[2017-10-31] MEDS: OMEPRAZOLE 20 MG CAPSULE PO SCH (09:06)
[2017-10-31] MEDS: LITHIUM CARBONATE 300 MG CAPSULE PO SCH ×2 (09:06→16:29)
[2017-10-31] MEDS: DIVALPROEX SODIUM 500 MG DR TABLET PO SCH ×2 (09:06→16:29)
[2017-10-31 10:29] VITALS: BP 99/61
[2017-10-31 14:44] LABS: APPEARANCE,URINE CLEAR (CLEAR); BILIRUBIN,URINE NEGATIVE (NEGATIVE); GLUCOSE, URINE (UA) NEGATIVE (NEGATIVE); KETONES,URINE NEGATIVE (NEGATIVE); LEUKOCYTE ESTERASE ,URINE NEGATIVE (NEGATIVE); NITRATE,URINE NEGATIVE (NEGATIVE); OCCULT BLOOD,URINE NEGATIVE (NEGATIVE); PROTEIN,URINE NEGATIVE (NEGATIVE); UROBILINOGEN,URINE 0.2 mg/dL (<=1.0)
[2017-10-31 16:43] VITALS: BP 115/68
[2017-10-31] MEDS: ACETAMINOPHEN 325 MG TABLET PO PRN (18:13)
[2017-10-31] MEDS: HALOPERIDOL 10 MG TABLET PO SCH (20:07)
[2017-11-01] MEDS: DIVALPROEX SODIUM 500 MG DR TABLET PO SCH ×2 (07:47→17:56)
[2017-11-01] MEDS: LITHIUM CARBONATE 300 MG CAPSULE PO SCH ×2 (07:47→17:56)
[2017-11-01] MEDS: OMEPRAZOLE 20 MG CAPSULE PO SCH (07:47)
[2017-11-01] MEDS: NICOTINE 21 MG/24 HOUR PATCH TD SCH (07:48)
[2017-11-01] MEDS: LORazepam 2 MG TABLET PO PRN ×2 (07:48→21:26)
[2017-11-01 16:00] VITALS: BP 114/67
[2017-11-01] MEDS: HALOPERIDOL 10 MG TABLET PO SCH (20:13)
[2017-11-02] MEDS: ZOLPIDEM TARTRATE 10 MG TABLET PO PRN ×2 (02:05→20:22)
[2017-11-02] MEDS: DIVALPROEX SODIUM 500 MG DR TABLET PO SCH ×2 (08:39→16:55)
[2017-11-02] MEDS: OMEPRAZOLE 20 MG CAPSULE PO SCH (08:39)
[2017-11-02] MEDS: NICOTINE 21 MG/24 HOUR PATCH TD SCH (08:39)
[2017-11-02] MEDS: LITHIUM CARBONATE 300 MG CAPSULE PO SCH ×2 (08:39→16:55)
[2017-11-02] MEDS: LORazepam 2 MG TABLET PO PRN (08:40)
[2017-11-02 13:23] VITALS: BP 93/63
[2017-11-02 18:23] VITALS: BP 116/65
[2017-11-02] MEDS: HALOPERIDOL 10 MG TABLET PO SCH (20:22)
[2017-11-03] MEDS: LORazepam 2 MG TABLET PO PRN (02:57)
[2017-11-03] MEDS: LITHIUM CARBONATE 300 MG CAPSULE PO SCH ×2 (08:15→16:14)
[2017-11-03] MEDS: DIVALPROEX SODIUM 500 MG DR TABLET PO SCH ×2 (08:15→16:13)
[2017-11-03] MEDS: OMEPRAZOLE 20 MG CAPSULE PO SCH (08:16)
[2017-11-03] MEDS: NICOTINE 21 MG/24 HOUR PATCH TD SCH (08:16)
[2017-11-03 16:48] VITALS: BP 98/58
[2017-11-03] MEDS: ZOLPIDEM TARTRATE 10 MG TABLET PO PRN (20:14)
[2017-11-03] MEDS: HALOPERIDOL 10 MG TABLET PO SCH (20:15)
[2017-11-04] MEDS: LORazepam 2 MG TABLET PO PRN ×2 (04:24→23:48)
[2017-11-04 08:17] VITALS: BP 120/74
[2017-11-04] MEDS: OMEPRAZOLE 20 MG CAPSULE PO SCH (08:21)
[2017-11-04] MEDS: DIVALPROEX SODIUM 500 MG DR TABLET PO SCH ×2 (08:21→16:19)
[2017-11-04] MEDS: NICOTINE 21 MG/24 HOUR PATCH TD SCH (08:22)
[2017-11-04] MEDS: LITHIUM CARBONATE 300 MG CAPSULE PO SCH ×2 (08:23→16:19)
[2017-11-04 16:30] VITALS: BP 111/63
[2017-11-04] MEDS: HALOPERIDOL 10 MG TABLET PO SCH (22:40)
[2017-11-04] MEDS: ZOLPIDEM TARTRATE 10 MG TABLET PO PRN (23:48)
[2017-11-05 03:37] VITALS: BP 98/75
[2017-11-05] MEDS: LITHIUM CARBONATE 300 MG CAPSULE PO SCH ×2 (07:56→16:23)
[2017-11-05] MEDS: OMEPRAZOLE 20 MG CAPSULE PO SCH (07:56)
[2017-11-05] MEDS: DIVALPROEX SODIUM 500 MG DR TABLET PO SCH ×2 (07:56→16:23)
[2017-11-05 08:09] VITALS: BP 118/68
[2017-11-05] MEDS: NICOTINE 21 MG/24 HOUR PATCH TD SCH (08:40)
[2017-11-05 17:00] VITALS: BP 119/72
[2017-11-05] MEDS: HALOPERIDOL 10 MG TABLET PO SCH (20:21)
[2017-11-05] MEDS: ZOLPIDEM TARTRATE 10 MG TABLET PO PRN (20:21)
[2017-11-06] MEDS: LORazepam 2 MG TABLET PO PRN ×2 (00:39→07:40)
[2017-11-06 00:43] VITALS: BP 100/60
[2017-11-06] MEDS: OMEPRAZOLE 20 MG CAPSULE PO SCH (07:38)
[2017-11-06] MEDS: LITHIUM CARBONATE 300 MG CAPSULE PO SCH ×2 (07:38→16:10)
[2017-11-06] MEDS: DIVALPROEX SODIUM 500 MG DR TABLET PO SCH ×2 (07:38→16:10)
[2017-11-06] MEDS: NICOTINE 21 MG/24 HOUR PATCH TD SCH (07:48)
[2017-11-06 09:24] VITALS: BP 112/66
[2017-11-06] MEDS: HALOPERIDOL 10 MG TABLET PO SCH (20:37)
[2017-11-06] MEDS: ZOLPIDEM TARTRATE 10 MG TABLET PO PRN (20:48)
[2017-11-06 22:25] VITALS: BP 110/80
[2017-11-07] MEDS: DIVALPROEX SODIUM 500 MG DR TABLET PO SCH ×2 (08:01→16:52)
[2017-11-07] MEDS: LITHIUM CARBONATE 300 MG CAPSULE PO SCH ×2 (08:01→16:52)
[2017-11-07] MEDS: OMEPRAZOLE 20 MG CAPSULE PO SCH (08:01)
[2017-11-07] MEDS: NICOTINE 21 MG/24 HOUR PATCH TD SCH (08:05)
[2017-11-07 08:33] VITALS: BP 98/68
[2017-11-07 16:26] VITALS: BP 114/75
[2017-11-07] MEDS: LORazepam 2 MG TABLET PO PRN (20:01)
[2017-11-07] MEDS: HALOPERIDOL 10 MG TABLET PO SCH (20:01)
[2017-11-07] MEDS: ZOLPIDEM TARTRATE 10 MG TABLET PO PRN (20:01)
[2017-11-08 08:14] VITALS: BP 107/62
[2017-11-08] MEDS: LITHIUM CARBONATE 300 MG CAPSULE PO SCH ×3 (09:00→17:00)
[2017-11-08] MEDS: OMEPRAZOLE 20 MG CAPSULE PO SCH (10:49)
[2017-11-08] MEDS: CHOLECALCIFEROL (VIT D3) 1,000 UNITS TABLET PO SCH (10:49)
[2017-11-08] MEDS: DIVALPROEX SODIUM 500 MG DR TABLET PO SCH ×2 (10:49→16:43)
[2017-11-08] MEDS: NICOTINE 21 MG/24 HOUR PATCH TD SCH (10:55)
[2017-11-08] MEDS: LORazepam 2 MG TABLET PO PRN (16:43)
[2017-11-08 19:48] VITALS: BP 110/76
[2017-11-08] MEDS: ZOLPIDEM TARTRATE 10 MG TABLET PO PRN (20:08)
[2017-11-08] MEDS: HALOPERIDOL 10 MG TABLET PO SCH (20:08)
[2017-11-09] MEDS: LORazepam 2 MG TABLET PO PRN (00:15)
[2017-11-09] MEDS: CHOLECALCIFEROL (VIT D3) 1,000 UNITS TABLET PO SCH (08:25)
[2017-11-09] MEDS: LITHIUM CARBONATE 300 MG CAPSULE PO SCH ×3 (08:25→16:22)
[2017-11-09] MEDS: DIVALPROEX SODIUM 500 MG DR TABLET PO SCH ×2 (08:25→16:21)
[2017-11-09] MEDS: OMEPRAZOLE 20 MG CAPSULE PO SCH ×2 (08:25→09:00)
[2017-11-09] MEDS: NICOTINE 21 MG/24 HOUR PATCH TD SCH (08:32)
[2017-11-09 08:54] VITALS: BP 102/59
[2017-11-09 20:12] VITALS: BP 132/77
[2017-11-09] MEDS: HALOPERIDOL 10 MG TABLET PO SCH (20:41)
[2017-11-09] MEDS: ZOLPIDEM TARTRATE 10 MG TABLET PO PRN (21:02)
[2017-11-10 02:30] VITALS: BP 109/77
[2017-11-10] MEDS: LORazepam 2 MG TABLET PO PRN ×3 (02:36→22:40)
[2017-11-10] MEDS: IBUPROFEN 600 MG TABLET PO PRN ×2 (03:29→11:45)
[2017-11-10 08:00] VITALS: BP 108/68
[2017-11-10] MEDS: DIVALPROEX SODIUM 500 MG DR TABLET PO SCH ×2 (08:15→16:36)
[2017-11-10] MEDS: OMEPRAZOLE 20 MG CAPSULE PO SCH ×2 (08:15→09:00)
[2017-11-10] MEDS: CHOLECALCIFEROL (VIT D3) 1,000 UNITS TABLET PO SCH ×2 (08:15→09:00)
[2017-11-10] MEDS: NICOTINE 21 MG/24 HOUR PATCH TD SCH (08:21)
[2017-11-10] MEDS: LITHIUM CARBONATE 300 MG CAPSULE PO SCH ×2 (09:00→17:00)
[2017-11-10] MEDS ORDERED: TUBERCULIN, PURIFIED PROTEIN DERIVATIVE 5 TU/0.1 ML SYG ID ONE (09:00)
[2017-11-10 17:00] VITALS: BP 141/98
[2017-11-10] MEDS: HALOPERIDOL 10 MG TABLET PO SCH (21:00)
[2017-11-10] MEDS: ZOLPIDEM TARTRATE 10 MG TABLET PO PRN (22:40)
[2017-11-11 02:58] VITALS: BP 111/78
[2017-11-11] MEDS: IBUPROFEN 600 MG TABLET PO PRN (02:58)
[2017-11-11] MEDS: LORazepam 2 MG TABLET PO PRN ×2 (03:16→20:50)
[2017-11-11] MEDS: DIVALPROEX SODIUM 500 MG DR TABLET PO SCH ×2 (08:19→16:12)
[2017-11-11] MEDS: CHOLECALCIFEROL (VIT D3) 1,000 UNITS TABLET PO SCH (08:28)
[2017-11-11 08:33] VITALS: BP 111/70
[2017-11-11] MEDS: LITHIUM CARBONATE 300 MG CAPSULE PO SCH ×2 (09:00→16:12)
[2017-11-11] MEDS: OMEPRAZOLE 20 MG CAPSULE PO SCH (09:00)
[2017-11-11] MEDS: NICOTINE 21 MG/24 HOUR PATCH TD SCH (11:05)
[2017-11-11 17:49] VITALS: BP 126/82
[2017-11-11] MEDS: HALOPERIDOL 10 MG TABLET PO SCH (20:11)
[2017-11-11] MEDS: ZOLPIDEM TARTRATE 10 MG TABLET PO PRN (20:50)
[2017-11-12] MEDS: CHOLECALCIFEROL (VIT D3) 1,000 UNITS TABLET PO SCH (08:19)
[2017-11-12] MEDS: OMEPRAZOLE 20 MG CAPSULE PO SCH (08:19)
[2017-11-12] MEDS: LITHIUM CARBONATE 300 MG CAPSULE PO SCH ×2 (08:19→16:21)
[2017-11-12] MEDS: LORazepam 2 MG TABLET PO PRN (08:20)
[2017-11-12] MEDS: DIVALPROEX SODIUM 500 MG DR TABLET PO SCH ×2 (08:20→16:21)
[2017-11-12] MEDS: NICOTINE 21 MG/24 HOUR PATCH TD SCH (08:25)
[2017-11-12 08:40] VITALS: BP 129/78
[2017-11-12 17:10] VITALS: BP 120/79
[2017-11-12] MEDS: ZOLPIDEM TARTRATE 10 MG TABLET PO PRN (20:34)
[2017-11-12] MEDS: HALOPERIDOL 10 MG TABLET PO SCH (20:34)
[2017-11-13 00:15] VITALS: BP 103/59
[2017-11-13] MEDS: NICOTINE 21 MG/24 HOUR PATCH TD SCH (07:57)
[2017-11-13] MEDS: OMEPRAZOLE 20 MG CAPSULE PO SCH (07:57)
[2017-11-13] MEDS: CHOLECALCIFEROL (VIT D3) 1,000 UNITS TABLET PO SCH (07:57)
[2017-11-13] MEDS: DIVALPROEX SODIUM 500 MG DR TABLET PO SCH ×2 (07:57→16:22)
[2017-11-13] MEDS: LITHIUM CARBONATE 300 MG CAPSULE PO SCH ×2 (07:58→16:22)
[2017-11-13 08:10] VITALS: BP 101/57
[2017-11-13 19:26] VITALS: BP 111/63
[2017-11-13] MEDS: HALOPERIDOL 10 MG TABLET PO SCH (20:03)
[2017-11-13] MEDS: ZOLPIDEM TARTRATE 10 MG TABLET PO PRN (20:03)
[2017-11-14] MEDS: LORazepam 2 MG TABLET PO PRN ×2 (01:20→07:47)
[2017-11-14] MEDS: CHOLECALCIFEROL (VIT D3) 1,000 UNITS TABLET PO SCH (07:47)
[2017-11-14] MEDS: OMEPRAZOLE 20 MG CAPSULE PO SCH (07:47)
[2017-11-14] MEDS: NICOTINE 21 MG/24 HOUR PATCH TD SCH (07:47)
[2017-11-14] MEDS: DIVALPROEX SODIUM 500 MG DR TABLET PO SCH ×2 (07:47→17:02)
[2017-11-14] MEDS: LITHIUM CARBONATE 300 MG CAPSULE PO SCH ×2 (07:47→17:02)
[2017-11-14 08:25] VITALS: BP 126/65
[2017-11-14] MEDS: HALOPERIDOL 10 MG TABLET PO SCH (20:28)
[2017-11-14] MEDS: ZOLPIDEM TARTRATE 10 MG TABLET PO PRN (22:12)
[2017-11-15] MEDS: LORazepam 2 MG TABLET PO PRN ×2 (05:19→10:33)
[2017-11-15 08:41] VITALS: BP 111/65
[2017-11-15] MEDS: CHOLECALCIFEROL (VIT D3) 1,000 UNITS TABLET PO SCH (10:33)
[2017-11-15] MEDS: NICOTINE 21 MG/24 HOUR PATCH TD SCH (10:33)
[2017-11-15] MEDS: DIVALPROEX SODIUM 500 MG DR TABLET PO SCH ×2 (10:33→16:04)
[2017-11-15] MEDS: OMEPRAZOLE 20 MG CAPSULE PO SCH (10:33)
[2017-11-15] MEDS: LITHIUM CARBONATE 300 MG CAPSULE PO SCH ×2 (10:33→16:04)
[2017-11-15 16:00] VITALS: BP 126/65
[2017-11-15] MEDS: HALOPERIDOL 10 MG TABLET PO SCH (20:39)
[2017-11-15] MEDS: ZOLPIDEM TARTRATE 10 MG TABLET PO PRN (20:39)
[2017-11-16 01:00] VITALS: BP 102/64
[2017-11-16] MEDS: LORazepam 2 MG TABLET PO PRN ×3 (01:04→21:31)
[2017-11-16] MEDS: NICOTINE 21 MG/24 HOUR PATCH TD SCH (09:00)
[2017-11-16] MEDS: DIVALPROEX SODIUM 500 MG DR TABLET PO SCH ×2 (09:00→16:36)
[2017-11-16] MEDS: CHOLECALCIFEROL (VIT D3) 1,000 UNITS TABLET PO SCH (09:00)
[2017-11-16] MEDS: OMEPRAZOLE 20 MG CAPSULE PO SCH (09:00)
[2017-11-16] MEDS: LITHIUM CARBONATE 300 MG CAPSULE PO SCH ×2 (09:00→16:36)
[2017-11-16 12:37] VITALS: BP 122/68
[2017-11-16] MEDS: HALOPERIDOL 10 MG TABLET PO SCH (20:19)
[2017-11-16] MEDS: ZOLPIDEM TARTRATE 10 MG TABLET PO PRN (20:19)
[2017-11-17 08:37] VITALS: BP 108/64
[2017-11-17] MEDS: OMEPRAZOLE 20 MG CAPSULE PO SCH (08:48)
[2017-11-17] MEDS: CHOLECALCIFEROL (VIT D3) 1,000 UNITS TABLET PO SCH (08:48)
[2017-11-17] MEDS: LITHIUM CARBONATE 300 MG CAPSULE PO SCH ×2 (08:48→17:06)
[2017-11-17] MEDS: DIVALPROEX SODIUM 500 MG DR TABLET PO SCH ×2 (08:48→17:06)
[2017-11-17] MEDS: NICOTINE 21 MG/24 HOUR PATCH TD SCH (08:52)
[2017-11-17 16:00] VITALS: BP 131/84
[2017-11-17] MEDS: HALOPERIDOL 10 MG TABLET PO SCH (20:18)
[2017-11-17] MEDS: ZOLPIDEM TARTRATE 10 MG TABLET PO PRN (20:18)
[2017-11-17] MEDS: LORazepam 2 MG TABLET PO PRN (21:11)
[2017-11-18 08:08] VITALS: BP 97/57
[2017-11-18] MEDS: NICOTINE 21 MG/24 HOUR PATCH TD SCH (08:48)
[2017-11-18] MEDS: LITHIUM CARBONATE 300 MG CAPSULE PO SCH ×2 (08:48→16:41)
[2017-11-18] MEDS: CHOLECALCIFEROL (VIT D3) 1,000 UNITS TABLET PO SCH (08:48)
[2017-11-18] MEDS: LORazepam 2 MG TABLET PO PRN (08:48)
[2017-11-18] MEDS: OMEPRAZOLE 20 MG CAPSULE PO SCH (08:48)
[2017-11-18] MEDS: DIVALPROEX SODIUM 500 MG DR TABLET PO SCH ×2 (08:48→16:41)
[2017-11-18 16:24] VITALS: BP 101/77
[2017-11-18] MEDS: ZOLPIDEM TARTRATE 10 MG TABLET PO PRN (20:53)
[2017-11-18] MEDS: HALOPERIDOL 10 MG TABLET PO SCH (20:54)
[2017-11-19 08:16] VITALS: BP 125/76
[2017-11-19] MEDS: LITHIUM CARBONATE 300 MG CAPSULE PO SCH ×2 (09:32→16:28)
[2017-11-19] MEDS: OMEPRAZOLE 20 MG CAPSULE PO SCH (09:32)
[2017-11-19] MEDS: NICOTINE 21 MG/24 HOUR PATCH TD SCH (09:32)
[2017-11-19] MEDS: CHOLECALCIFEROL (VIT D3) 1,000 UNITS TABLET PO SCH (09:32)
[2017-11-19] MEDS: LORazepam 2 MG TABLET PO PRN ×2 (09:32→19:54)
[2017-11-19] MEDS: DIVALPROEX SODIUM 500 MG DR TABLET PO SCH ×2 (09:32→16:28)
[2017-11-19] MEDS: HALOPERIDOL 10 MG TABLET PO SCH (20:00)
[2017-11-19] MEDS: ZOLPIDEM TARTRATE 10 MG TABLET PO PRN (20:30)
[2017-11-20 08:22] VITALS: BP 101/59
[2017-11-20] MEDS: LITHIUM CARBONATE 300 MG CAPSULE PO SCH ×2 (09:12→16:37)
[2017-11-20] MEDS: CHOLECALCIFEROL (VIT D3) 1,000 UNITS TABLET PO SCH (09:12)
[2017-11-20] MEDS: DIVALPROEX SODIUM 500 MG DR TABLET PO SCH ×2 (09:12→16:37)
[2017-11-20] MEDS: LORazepam 2 MG TABLET PO PRN (09:12)
[2017-11-20] MEDS: NICOTINE 21 MG/24 HOUR PATCH TD SCH (09:12)
[2017-11-20] MEDS: OMEPRAZOLE 20 MG CAPSULE PO SCH (09:13)
[2017-11-20 16:00] VITALS: BP 125/69
[2017-11-20] MEDS: HALOPERIDOL 10 MG TABLET PO SCH (20:03)
[2017-11-20] MEDS: ZOLPIDEM TARTRATE 10 MG TABLET PO PRN (21:53)
[2017-11-21] MEDS: OMEPRAZOLE 20 MG CAPSULE PO SCH (08:00)
[2017-11-21] MEDS: CHOLECALCIFEROL (VIT D3) 1,000 UNITS TABLET PO SCH (08:00)
[2017-11-21] MEDS: DIVALPROEX SODIUM 500 MG DR TABLET PO SCH ×2 (08:00→16:32)
[2017-11-21] MEDS: LITHIUM CARBONATE 300 MG CAPSULE PO SCH ×2 (08:00→16:32)
[2017-11-21 08:23] VITALS: BP 101/67
[2017-11-21] MEDS: NICOTINE 21 MG/24 HOUR PATCH TD SCH (09:00)
[2017-11-21] MEDS: HALOPERIDOL 10 MG TABLET PO SCH (20:18)
[2017-11-21] MEDS: ZOLPIDEM TARTRATE 10 MG TABLET PO PRN (20:25)
[2017-11-22] MEDS: LORazepam 2 MG TABLET PO PRN ×2 (01:20→21:47)
[2017-11-22 01:21] VITALS: BP 118/63
[2017-11-22 08:39] VITALS: BP 114/67
[2017-11-22] MEDS: OMEPRAZOLE 20 MG CAPSULE PO SCH (08:45)
[2017-11-22] MEDS: LITHIUM CARBONATE 300 MG CAPSULE PO SCH ×2 (08:45→16:03)
[2017-11-22] MEDS: DIVALPROEX SODIUM 500 MG DR TABLET PO SCH ×2 (08:45→16:03)
[2017-11-22] MEDS: CHOLECALCIFEROL (VIT D3) 1,000 UNITS TABLET PO SCH (08:45)
[2017-11-22] MEDS: NICOTINE 21 MG/24 HOUR PATCH TD SCH (08:50)
[2017-11-22 16:00] VITALS: BP 132/82
[2017-11-22] MEDS: ZOLPIDEM TARTRATE 10 MG TABLET PO PRN (20:13)
[2017-11-22] MEDS: HALOPERIDOL 10 MG TABLET PO SCH (20:13)
[2017-11-23 00:35] VITALS: BP 126/73
[2017-11-23 08:30] VITALS: BP 111/67
[2017-11-23] MEDS: OMEPRAZOLE 20 MG CAPSULE PO SCH (11:03)
[2017-11-23] MEDS: CHOLECALCIFEROL (VIT D3) 1,000 UNITS TABLET PO SCH (11:03)
[2017-11-23] MEDS: LITHIUM CARBONATE 300 MG CAPSULE PO SCH ×2 (11:05→16:18)
[2017-11-23] MEDS: DIVALPROEX SODIUM 500 MG DR TABLET PO SCH ×2 (11:06→16:18)
[2017-11-23] MEDS: NICOTINE 21 MG/24 HOUR PATCH TD SCH (11:07)
[2017-11-23] MEDS: HALOPERIDOL 10 MG TABLET PO SCH (20:26)
[2017-11-23] MEDS: ZOLPIDEM TARTRATE 10 MG TABLET PO PRN (20:27)
[2017-11-24 08:06] VITALS: BP 108/54
[2017-11-24] MEDS: DIVALPROEX SODIUM 500 MG DR TABLET PO SCH ×2 (08:14→16:07)
[2017-11-24] MEDS: LITHIUM CARBONATE 300 MG CAPSULE PO SCH ×2 (08:14→16:07)
[2017-11-24] MEDS: OMEPRAZOLE 20 MG CAPSULE PO SCH (08:14)
[2017-11-24] MEDS: CHOLECALCIFEROL (VIT D3) 1,000 UNITS TABLET PO SCH (08:14)
[2017-11-24] MEDS: NICOTINE 21 MG/24 HOUR PATCH TD SCH (08:15)
[2017-11-24] MEDS: LORazepam 2 MG TABLET PO PRN ×2 (16:07→20:40)
[2017-11-24 16:36] VITALS: BP 105/69
[2017-11-24] MEDS: HALOPERIDOL 10 MG TABLET PO SCH (20:40)
[2017-11-24] MEDS: ZOLPIDEM TARTRATE 10 MG TABLET PO PRN (21:35)
[2017-11-25 08:05] VITALS: BP 111/65
[2017-11-25] MEDS: OMEPRAZOLE 20 MG CAPSULE PO SCH (09:22)
[2017-11-25] MEDS: LITHIUM CARBONATE 300 MG CAPSULE PO SCH ×2 (09:22→17:04)
[2017-11-25] MEDS: CHOLECALCIFEROL (VIT D3) 1,000 UNITS TABLET PO SCH (09:22)
[2017-11-25] MEDS: DIVALPROEX SODIUM 500 MG DR TABLET PO SCH ×2 (09:22→17:04)
[2017-11-25] MEDS: NICOTINE 21 MG/24 HOUR PATCH TD SCH (09:27)
[2017-11-25] MEDS: LORazepam 2 MG TABLET PO PRN ×2 (17:04→23:58)
[2017-11-25] MEDS: HALOPERIDOL 10 MG TABLET PO SCH (20:59)
[2017-11-25] MEDS: ZOLPIDEM TARTRATE 10 MG TABLET PO PRN (20:59)
[2017-11-26 08:24] VITALS: BP 102/59
[2017-11-26] MEDS: OMEPRAZOLE 20 MG CAPSULE PO SCH (08:46)
[2017-11-26] MEDS: DIVALPROEX SODIUM 500 MG DR TABLET PO SCH ×2 (08:46→16:11)
[2017-11-26] MEDS: CHOLECALCIFEROL (VIT D3) 1,000 UNITS TABLET PO SCH (08:46)
[2017-11-26] MEDS: LITHIUM CARBONATE 300 MG CAPSULE PO SCH ×2 (08:46→16:11)
[2017-11-26] MEDS: NICOTINE 21 MG/24 HOUR PATCH TD SCH (09:08)
[2017-11-26] MEDS: LORazepam 2 MG TABLET PO PRN (09:54)
[2017-11-26 16:37] VITALS: BP 107/59
[2017-11-26] MEDS: HALOPERIDOL 10 MG TABLET PO SCH (20:15)
[2017-11-26] MEDS: ZOLPIDEM TARTRATE 10 MG TABLET PO PRN (20:15)
[2017-11-27] MEDS: CHOLECALCIFEROL (VIT D3) 1,000 UNITS TABLET PO SCH (08:48)
[2017-11-27] MEDS: DIVALPROEX SODIUM 500 MG DR TABLET PO SCH ×2 (08:48→16:13)
[2017-11-27] MEDS: LITHIUM CARBONATE 300 MG CAPSULE PO SCH ×2 (08:48→16:13)
[2017-11-27] MEDS: OMEPRAZOLE 20 MG CAPSULE PO SCH (08:49)
[2017-11-27] MEDS: NICOTINE 21 MG/24 HOUR PATCH TD SCH (08:53)
[2017-11-27 08:56] VITALS: BP 117/66
[2017-11-27 16:18] VITALS: BP 103/79
[2017-11-27] MEDS: ZOLPIDEM TARTRATE 10 MG TABLET PO PRN (20:19)
[2017-11-27] MEDS: HALOPERIDOL 10 MG TABLET PO SCH (20:19)
[2017-11-28 02:25] VITALS: BP 100/65
[2017-11-28] MEDS: LORazepam 2 MG TABLET PO PRN ×2 (02:28→19:35)
[2017-11-28 08:05] VITALS: BP 128/66
[2017-11-28] MEDS: CHOLECALCIFEROL (VIT D3) 1,000 UNITS TABLET PO SCH (08:46)
[2017-11-28] MEDS: LITHIUM CARBONATE 300 MG CAPSULE PO SCH ×2 (08:46→17:28)
[2017-11-28] MEDS: OMEPRAZOLE 20 MG CAPSULE PO SCH (08:46)
[2017-11-28] MEDS: DIVALPROEX SODIUM 500 MG DR TABLET PO SCH ×2 (08:46→17:28)
[2017-11-28] MEDS: NICOTINE 21 MG/24 HOUR PATCH TD SCH (08:47)
[2017-11-28 16:26] VITALS: BP 126/78
[2017-11-28] MEDS: HALOPERIDOL 10 MG TABLET PO SCH (20:37)
[2017-11-28] MEDS: ZOLPIDEM TARTRATE 10 MG TABLET PO PRN (20:37)
[2017-11-29 07:36] LABS: BASOPHILS % (AUTO) 0.7 % (0.0-2.0); EOSINOPHILS % (AUTO) 6.1 % (1.0-6.0); HEMATOCRIT 48.3 % (41-53); HEMOGLOBIN 16.8 g/dL (13.5-17.5); LYMPHOCYTES % (AUTO) 36.8 % (22.0-44.0); MEAN CORPUSCULAR HEMOGLOBIN 31.5 pg (26.0-34.0); MEAN CORPUSCULAR HGB CONC 34.8 G/dL (31.0-37.0); MEAN CORPUSCULAR VOLUME 91 fL (80-100); MONOCYTES # (AUTO) 0.5 K/uL (0.1-1.0); MONOCYTES % (AUTO) 6.5 % (2.0-9.0); NEUTROPHILS # (AUTO) 4.1 K/uL (1.8-7.7); NEUTROPHILS % (AUTO) 49.9 % (40.0-70.0); PLATELET COUNT (AUTO) 181 K/uL (150-450); RED BLOOD CELL COUNT(AUTO) 5.33 MIL/uL (4.50-5.90); RED CELL DISTRIBUTION WIDTH 12.9 % (11.5-14.5)
[2017-11-29 07:49] LABS: ANION GAP 3 mmol/L (8-16); CALCIUM, TOTAL 9.1 mg/dL (8.8-10.5); CARBON DIOXIDE 33 mmol/L (22-29); CHLORIDE 101 mmol/L (98-107); CREATININE 1.06 mg/dL (0.60-1.30); GLOMERULAR FILTR. RATE CALC > 60 mL/min (>60); GLUCOSE,RANDOM 82 mg/dL (70-110); POTASSIUM 4.7 mmol/L (3.5-5.1); SODIUM SERUM 137 mmol/L (136-145); UREA NITROGEN, BLOOD 17 mg/dL (7-18); VALPROIC ACID 37 mcg/mL (50-100)
[2017-11-29 08:18] LABS: LITHIUM 0.32 mmol/L (0.60-1.20)
[2017-11-29] MEDS: LITHIUM CARBONATE 300 MG CAPSULE PO SCH ×2 (08:20→17:42)
[2017-11-29] MEDS: CHOLECALCIFEROL (VIT D3) 1,000 UNITS TABLET PO SCH (08:20)
[2017-11-29] MEDS: OMEPRAZOLE 20 MG CAPSULE PO SCH (08:20)
[2017-11-29] MEDS: DIVALPROEX SODIUM 500 MG DR TABLET PO SCH ×2 (08:20→17:42)
[2017-11-29 08:32] VITALS: BP 127/68
[2017-11-29] MEDS: NICOTINE 21 MG/24 HOUR PATCH TD SCH (09:00)
[2017-11-29 16:00] VITALS: BP 119/65
[2017-11-29] MEDS: LORazepam 2 MG TABLET PO PRN (17:42)
[2017-11-29] MEDS: HALOPERIDOL 10 MG TABLET PO SCH (20:45)
[2017-11-29] MEDS: ZOLPIDEM TARTRATE 10 MG TABLET PO PRN (20:45)
[2017-11-30 08:04] VITALS: BP 121/73
[2017-11-30] MEDS: DIVALPROEX SODIUM 500 MG DR TABLET PO SCH ×2 (08:08→17:05)
[2017-11-30] MEDS: LITHIUM CARBONATE 300 MG CAPSULE PO SCH ×2 (08:08→17:05)
[2017-11-30] MEDS: CHOLECALCIFEROL (VIT D3) 1,000 UNITS TABLET PO SCH (08:08)
[2017-11-30] MEDS: OMEPRAZOLE 20 MG CAPSULE PO SCH (08:08)
[2017-11-30 16:48] VITALS: BP 105/65
[2017-11-30] MEDS: LORazepam 2 MG TABLET PO PRN (19:56)
[2017-11-30] MEDS: HALOPERIDOL 10 MG TABLET PO SCH (21:44)
[2017-11-30] MEDS: ZOLPIDEM TARTRATE 10 MG TABLET PO PRN (21:45)
[2017-12-01] MEDS: DIVALPROEX SODIUM 500 MG DR TABLET PO SCH ×2 (07:56→16:27)
[2017-12-01] MEDS: LITHIUM CARBONATE 300 MG CAPSULE PO SCH ×2 (07:56→16:27)
[2017-12-01] MEDS: CHOLECALCIFEROL (VIT D3) 1,000 UNITS TABLET PO SCH (07:56)
[2017-12-01] MEDS: OMEPRAZOLE 20 MG CAPSULE PO SCH (07:56)
[2017-12-01 08:01] VITALS: BP 109/62
[2017-12-01 17:26] VITALS: BP 111/65
[2017-12-01] MEDS: LORazepam 2 MG TABLET PO PRN (18:47)
[2017-12-01] MEDS: HALOPERIDOL 10 MG TABLET PO SCH (20:07)
[2017-12-01] MEDS: ZOLPIDEM TARTRATE 10 MG TABLET PO PRN (20:07)
[2017-12-02 08:00] VITALS: BP 108/55
[2017-12-02] MEDS: CHOLECALCIFEROL (VIT D3) 1,000 UNITS TABLET PO SCH (08:29)
[2017-12-02] MEDS: DIVALPROEX SODIUM 500 MG DR TABLET PO SCH ×2 (08:29→16:59)
[2017-12-02] MEDS: LITHIUM CARBONATE 300 MG CAPSULE PO SCH ×2 (08:29→16:59)
[2017-12-02] MEDS: OMEPRAZOLE 20 MG CAPSULE PO SCH (08:30)
[2017-12-02 08:57] VITALS: BP 108/55
[2017-12-02 16:00] VITALS: BP 110/58
[2017-12-02] MEDS: LORazepam 2 MG TABLET PO PRN (17:00)
[2017-12-02] MEDS: HALOPERIDOL 10 MG TABLET PO SCH (20:01)
[2017-12-02] MEDS: ZOLPIDEM TARTRATE 10 MG TABLET PO PRN (20:08)
[2017-12-03 08:16] VITALS: BP 120/70
[2017-12-03] MEDS: CHOLECALCIFEROL (VIT D3) 1,000 UNITS TABLET PO SCH (09:51)
[2017-12-03] MEDS: OMEPRAZOLE 20 MG CAPSULE PO SCH (09:51)
[2017-12-03] MEDS: DIVALPROEX SODIUM 500 MG DR TABLET PO SCH ×2 (09:52→16:01)
[2017-12-03] MEDS: LITHIUM CARBONATE 300 MG CAPSULE PO SCH ×2 (09:52→16:01)
[2017-12-03] MEDS: LORazepam 2 MG TABLET PO PRN (15:57)
[2017-12-03 16:07] VITALS: BP 139/74
[2017-12-03] MEDS: HALOPERIDOL 10 MG TABLET PO SCH (20:34)
[2017-12-03] MEDS: ZOLPIDEM TARTRATE 10 MG TABLET PO PRN (21:47)
[2017-12-04] MEDS: DIVALPROEX SODIUM 500 MG DR TABLET PO SCH ×2 (07:56→16:06)
[2017-12-04] MEDS: OMEPRAZOLE 20 MG CAPSULE PO SCH (07:56)
[2017-12-04] MEDS: LITHIUM CARBONATE 300 MG CAPSULE PO SCH ×2 (07:56→16:06)
[2017-12-04] MEDS: CHOLECALCIFEROL (VIT D3) 1,000 UNITS TABLET PO SCH (07:56)
[2017-12-04 08:07] VITALS: BP 112/67
[2017-12-04 16:25] VITALS: BP 100/64
[2017-12-04] MEDS: LORazepam 2 MG TABLET PO PRN (17:54)
[2017-12-04] MEDS: HALOPERIDOL 10 MG TABLET PO SCH (20:15)
[2017-12-04] MEDS: ZOLPIDEM TARTRATE 10 MG TABLET PO PRN (21:01)
[2017-12-05 08:01] VITALS: BP 107/53
[2017-12-05] MEDS: LITHIUM CARBONATE 300 MG CAPSULE PO SCH ×2 (08:14→16:39)
[2017-12-05] MEDS: OMEPRAZOLE 20 MG CAPSULE PO SCH (08:14)
[2017-12-05] MEDS: CHOLECALCIFEROL (VIT D3) 1,000 UNITS TABLET PO SCH (08:15)
[2017-12-05] MEDS: DIVALPROEX SODIUM 500 MG DR TABLET PO SCH ×2 (08:15→16:39)
[2017-12-05 16:01] VITALS: BP 101/67
[2017-12-05] MEDS: LORazepam 2 MG TABLET PO PRN (18:20)
[2017-12-05] MEDS: HALOPERIDOL 10 MG TABLET PO SCH (20:01)
[2017-12-05] MEDS: NICOTINE 21 MG/24 HOUR PATCH TD PRN (20:11)
[2017-12-06 07:16] LABS: LITHIUM 0.22 mmol/L (0.60-1.20)
[2017-12-06] MEDS: LITHIUM CARBONATE 300 MG CAPSULE PO SCH ×2 (08:42→17:02)
[2017-12-06] MEDS: OMEPRAZOLE 20 MG CAPSULE PO SCH (08:42)
[2017-12-06] MEDS: CHOLECALCIFEROL (VIT D3) 1,000 UNITS TABLET PO SCH (08:42)
[2017-12-06] MEDS: DIVALPROEX SODIUM 500 MG DR TABLET PO SCH ×2 (08:42→17:02)
[2017-12-06 08:47] VITALS: BP 111/68
[2017-12-06] MEDS: LORazepam 2 MG TABLET PO PRN ×2 (12:41→17:30)
[2017-12-06 17:00] VITALS: BP 100/63
[2017-12-06] MEDS: ZOLPIDEM TARTRATE 10 MG TABLET PO PRN (20:35)
[2017-12-06] MEDS: HALOPERIDOL 10 MG TABLET PO SCH (20:36)
[2017-12-07 08:01] VITALS: BP 136/77
[2017-12-07] MEDS: DIVALPROEX SODIUM 500 MG DR TABLET PO SCH ×2 (08:12→16:51)
[2017-12-07] MEDS: CHOLECALCIFEROL (VIT D3) 1,000 UNITS TABLET PO SCH (08:12)
[2017-12-07] MEDS: LITHIUM CARBONATE 300 MG CAPSULE PO SCH ×2 (08:12→16:50)
[2017-12-07] MEDS: OMEPRAZOLE 20 MG CAPSULE PO SCH (08:12)
[2017-12-07] MEDS: NICOTINE 21 MG/24 HOUR PATCH TD PRN (11:47)
[2017-12-07 17:48] VITALS: BP 101/62
[2017-12-07] MEDS: ZOLPIDEM TARTRATE 10 MG TABLET PO PRN (20:06)
[2017-12-07] MEDS: HALOPERIDOL 10 MG TABLET PO SCH (20:06)
[2017-12-08] MEDS: LORazepam 2 MG TABLET PO PRN (04:56)
[2017-12-08 08:03] VITALS: BP 105/57
[2017-12-08] MEDS: OMEPRAZOLE 20 MG CAPSULE PO SCH (08:54)
[2017-12-08] MEDS: LITHIUM CARBONATE 300 MG CAPSULE PO SCH ×2 (08:54→16:32)
[2017-12-08] MEDS: DIVALPROEX SODIUM 500 MG DR TABLET PO SCH ×2 (08:54→16:32)
[2017-12-08] MEDS: CHOLECALCIFEROL (VIT D3) 1,000 UNITS TABLET PO SCH (08:55)
[2017-12-08] MEDS: NICOTINE 21 MG/24 HOUR PATCH TD PRN (08:55)
[2017-12-08 16:36] VITALS: BP 108/77
[2017-12-08] MEDS: HALOPERIDOL 10 MG TABLET PO SCH (20:09)
[2017-12-08] MEDS: ZOLPIDEM TARTRATE 10 MG TABLET PO PRN (20:10)
[2017-12-09] MEDS: LORazepam 2 MG TABLET PO PRN (03:01)
[2017-12-09 03:06] VITALS: BP 100/69
[2017-12-09] MEDS: LITHIUM CARBONATE 300 MG CAPSULE PO SCH ×2 (08:03→15:57)
[2017-12-09] MEDS: DIVALPROEX SODIUM 500 MG DR TABLET PO SCH ×2 (08:03→15:57)
[2017-12-09] MEDS: CHOLECALCIFEROL (VIT D3) 1,000 UNITS TABLET PO SCH (08:03)
[2017-12-09] MEDS: OMEPRAZOLE 20 MG CAPSULE PO SCH (08:04)
[2017-12-09] MEDS: NICOTINE 21 MG/24 HOUR PATCH TD PRN (08:05)
[2017-12-09 08:08] VITALS: BP 113/67
[2017-12-09 17:48] VITALS: BP 119/72
[2017-12-09] MEDS: HALOPERIDOL 10 MG TABLET PO SCH (20:46)
[2017-12-09] MEDS: ZOLPIDEM TARTRATE 10 MG TABLET PO PRN (20:47)
[2017-12-10] MEDS: CHOLECALCIFEROL (VIT D3) 1,000 UNITS TABLET PO SCH (08:26)
[2017-12-10] MEDS: LITHIUM CARBONATE 300 MG CAPSULE PO SCH ×2 (08:26→16:27)
[2017-12-10] MEDS: OMEPRAZOLE 20 MG CAPSULE PO SCH (08:26)
[2017-12-10] MEDS: DIVALPROEX SODIUM 500 MG DR TABLET PO SCH ×2 (08:26→16:27)
[2017-12-10 09:05] VITALS: BP 106/60
[2017-12-10 16:46] VITALS: BP 104/78
[2017-12-10] MEDS: ZOLPIDEM TARTRATE 10 MG TABLET PO PRN (20:41)
[2017-12-10] MEDS: HALOPERIDOL 10 MG TABLET PO SCH (20:41)
[2017-12-11] MEDS: DIVALPROEX SODIUM 500 MG DR TABLET PO SCH ×2 (08:12→17:00)
[2017-12-11] MEDS: OMEPRAZOLE 20 MG CAPSULE PO SCH (08:12)
[2017-12-11] MEDS: LITHIUM CARBONATE 300 MG CAPSULE PO SCH ×2 (08:12→17:00)
[2017-12-11] MEDS: CHOLECALCIFEROL (VIT D3) 1,000 UNITS TABLET PO SCH (08:13)
[2017-12-11 08:15] VITALS: BP 108/68
[2017-12-11] MEDS: LORazepam 2 MG TABLET PO PRN ×2 (08:54→17:00)
[2017-12-11] MEDS: HALOPERIDOL 10 MG TABLET PO SCH (20:22)
[2017-12-11 20:47] VITALS: BP 126/78
[2017-12-11] MEDS: ZOLPIDEM TARTRATE 10 MG TABLET PO PRN (23:06)
[2017-12-12 08:05] VITALS: BP 126/62
[2017-12-12] MEDS: LITHIUM CARBONATE 300 MG CAPSULE PO SCH ×2 (08:54→16:26)
[2017-12-12] MEDS: LORazepam 2 MG TABLET PO PRN ×2 (08:54→18:33)
[2017-12-12] MEDS: CHOLECALCIFEROL (VIT D3) 1,000 UNITS TABLET PO SCH (08:54)
[2017-12-12] MEDS: OMEPRAZOLE 20 MG CAPSULE PO SCH (08:54)
[2017-12-12] MEDS: DIVALPROEX SODIUM 500 MG DR TABLET PO SCH ×2 (08:54→16:26)
[2017-12-12] MEDS: NICOTINE 21 MG/24 HOUR PATCH TD PRN (08:55)
[2017-12-12] MEDS: ZOLPIDEM TARTRATE 10 MG TABLET PO PRN (20:12)
[2017-12-12] MEDS: HALOPERIDOL 10 MG TABLET PO SCH (20:12)
[2017-12-13] MEDS: LORazepam 2 MG TABLET PO PRN ×2 (02:15→09:24)
[2017-12-13 02:17] VITALS: BP 109/68
[2017-12-13 08:05] VITALS: BP 126/77
[2017-12-13] MEDS: CHOLECALCIFEROL (VIT D3) 1,000 UNITS TABLET PO SCH (09:05)
[2017-12-13] MEDS: LITHIUM CARBONATE 300 MG CAPSULE PO SCH ×2 (09:05→16:47)
[2017-12-13] MEDS: OMEPRAZOLE 20 MG CAPSULE PO SCH (09:05)
[2017-12-13] MEDS: DIVALPROEX SODIUM 500 MG DR TABLET PO SCH ×2 (09:05→16:47)
[2017-12-13] MEDS: NICOTINE 21 MG/24 HOUR PATCH TD PRN (09:23)
[2017-12-13] MEDS: HALOPERIDOL 10 MG TABLET PO SCH (20:13)
[2017-12-13 20:54] VITALS: BP 122/69
[2017-12-13] MEDS: ZOLPIDEM TARTRATE 10 MG TABLET PO PRN (21:08)
[2017-12-14] MEDS: LORazepam 2 MG TABLET PO PRN ×2 (06:16→17:18)
[2017-12-14] MEDS: CHOLECALCIFEROL (VIT D3) 1,000 UNITS TABLET PO SCH (08:55)
[2017-12-14] MEDS: OMEPRAZOLE 20 MG CAPSULE PO SCH (08:55)
[2017-12-14] MEDS: NICOTINE 21 MG/24 HOUR PATCH TD PRN (08:55)
[2017-12-14] MEDS: LITHIUM CARBONATE 300 MG CAPSULE PO SCH ×2 (08:55→17:18)
[2017-12-14] MEDS: DIVALPROEX SODIUM 500 MG DR TABLET PO SCH ×2 (08:55→17:16)
[2017-12-14 17:15] VITALS: BP 114/77
[2017-12-14] MEDS: HALOPERIDOL 10 MG TABLET PO SCH (21:01)
[2017-12-14] MEDS: ZOLPIDEM TARTRATE 10 MG TABLET PO PRN (21:01)
[2017-12-15 06:00] VITALS: BP 108/66
[2017-12-15] MEDS: LORazepam 2 MG TABLET PO PRN ×2 (06:01→17:31)
[2017-12-15 08:02] VITALS: BP 122/74
[2017-12-15] MEDS: OMEPRAZOLE 20 MG CAPSULE PO SCH (08:06)
[2017-12-15] MEDS: LITHIUM CARBONATE 300 MG CAPSULE PO SCH ×2 (08:06→17:31)
[2017-12-15] MEDS: DIVALPROEX SODIUM 500 MG DR TABLET PO SCH ×2 (08:06→17:31)
[2017-12-15] MEDS: CHOLECALCIFEROL (VIT D3) 1,000 UNITS TABLET PO SCH (08:06)
[2017-12-15 17:32] VITALS: BP 116/76
[2017-12-15] MEDS: ZOLPIDEM TARTRATE 10 MG TABLET PO PRN (20:40)
[2017-12-15] MEDS: HALOPERIDOL 10 MG TABLET PO SCH (20:40)
[2017-12-16] MEDS: LORazepam 2 MG TABLET PO PRN ×2 (05:49→18:58)
[2017-12-16 08:56] VITALS: BP 104/68
[2017-12-16] MEDS: NICOTINE 21 MG/24 HOUR PATCH TD PRN (09:04)
[2017-12-16] MEDS: CHOLECALCIFEROL (VIT D3) 1,000 UNITS TABLET PO SCH (09:04)
[2017-12-16] MEDS: DIVALPROEX SODIUM 500 MG DR TABLET PO SCH ×2 (09:04→16:39)
[2017-12-16] MEDS: LITHIUM CARBONATE 300 MG CAPSULE PO SCH ×2 (09:04→16:39)
[2017-12-16] MEDS: OMEPRAZOLE 20 MG CAPSULE PO SCH (09:05)
[2017-12-16 20:01] VITALS: BP 112/78
[2017-12-16] MEDS: HALOPERIDOL 10 MG TABLET PO SCH (20:04)
[2017-12-16] MEDS: ZOLPIDEM TARTRATE 10 MG TABLET PO PRN (20:05)
[2017-12-17] MEDS: LORazepam 2 MG TABLET PO PRN ×2 (03:06→20:59)
[2017-12-17 08:00] VITALS: BP 105/61
[2017-12-17] MEDS: OMEPRAZOLE 20 MG CAPSULE PO SCH (10:59)
[2017-12-17] MEDS: NICOTINE 21 MG/24 HOUR PATCH TD PRN (10:59)
[2017-12-17] MEDS: DIVALPROEX SODIUM 500 MG DR TABLET PO SCH ×2 (10:59→17:29)
[2017-12-17] MEDS: CHOLECALCIFEROL (VIT D3) 1,000 UNITS TABLET PO SCH (10:59)
[2017-12-17] MEDS: LITHIUM CARBONATE 300 MG CAPSULE PO SCH ×2 (10:59→17:30)
[2017-12-17 16:02] VITALS: BP 100/74
[2017-12-17] MEDS: HALOPERIDOL 10 MG TABLET PO SCH (20:58)
[2017-12-17] MEDS: ZOLPIDEM TARTRATE 10 MG TABLET PO PRN (20:58)
[2017-12-18] MEDS: OMEPRAZOLE 20 MG CAPSULE PO SCH (09:01)
[2017-12-18] MEDS: CHOLECALCIFEROL (VIT D3) 1,000 UNITS TABLET PO SCH (09:01)
[2017-12-18] MEDS: DIVALPROEX SODIUM 500 MG DR TABLET PO SCH ×2 (09:01→16:36)
[2017-12-18] MEDS: LITHIUM CARBONATE 300 MG CAPSULE PO SCH ×2 (09:01→16:36)
[2017-12-18] MEDS: NICOTINE 21 MG/24 HOUR PATCH TD PRN (09:19)
[2017-12-18 16:01] VITALS: BP 115/63
[2017-12-18] MEDS: LORazepam 2 MG TABLET PO PRN (18:10)
[2017-12-18] MEDS: HALOPERIDOL 10 MG TABLET PO SCH (20:03)
[2017-12-18] MEDS: ZOLPIDEM TARTRATE 10 MG TABLET PO PRN (21:25)
[2017-12-19] MEDS: LORazepam 2 MG TABLET PO PRN ×2 (05:22→18:10)
[2017-12-19 08:41] VITALS: BP 106/76
[2017-12-19] MEDS: CHOLECALCIFEROL (VIT D3) 1,000 UNITS TABLET PO SCH (09:06)
[2017-12-19] MEDS: OMEPRAZOLE 20 MG CAPSULE PO SCH (09:06)
[2017-12-19] MEDS: LITHIUM CARBONATE 300 MG CAPSULE PO SCH ×2 (09:06→17:44)
[2017-12-19] MEDS: DIVALPROEX SODIUM 500 MG DR TABLET PO SCH ×2 (09:06→17:44)
[2017-12-19 16:10] VITALS: BP 116/72
[2017-12-19] MEDS: ZOLPIDEM TARTRATE 10 MG TABLET PO PRN (20:32)
[2017-12-19] MEDS: HALOPERIDOL 10 MG TABLET PO SCH (20:32)
[2017-12-20 07:06] LABS: LITHIUM 0.29 mmol/L (0.60-1.20)
[2017-12-20 08:00] VITALS: BP 103/64
[2017-12-20] MEDS: DIVALPROEX SODIUM 500 MG DR TABLET PO SCH ×2 (08:10→17:12)
[2017-12-20] MEDS: LITHIUM CARBONATE 300 MG CAPSULE PO SCH ×2 (08:10→17:12)
[2017-12-20] MEDS: CHOLECALCIFEROL (VIT D3) 1,000 UNITS TABLET PO SCH (08:10)
[2017-12-20] MEDS: OMEPRAZOLE 20 MG CAPSULE PO SCH (08:10)
[2017-12-20] MEDS: LORazepam 2 MG TABLET PO PRN (17:14)
[2017-12-20] MEDS: ZOLPIDEM TARTRATE 10 MG TABLET PO PRN (20:00)
[2017-12-20] MEDS: HALOPERIDOL 10 MG TABLET PO SCH (20:00)
[2017-12-21] MEDS: LORazepam 2 MG TABLET PO PRN (05:32)
[2017-12-21] MEDS: LITHIUM CARBONATE 300 MG CAPSULE PO SCH ×2 (08:06→17:15)
[2017-12-21] MEDS: DIVALPROEX SODIUM 500 MG DR TABLET PO SCH ×2 (08:06→17:16)
[2017-12-21] MEDS: OMEPRAZOLE 20 MG CAPSULE PO SCH (08:06)
[2017-12-21] MEDS: CHOLECALCIFEROL (VIT D3) 1,000 UNITS TABLET PO SCH (08:06)
[2017-12-21 09:15] VITALS: BP 111/65
[2017-12-21 17:46] VITALS: BP 121/68
[2017-12-21] MEDS: HALOPERIDOL 10 MG TABLET PO SCH (20:15)
[2017-12-21] MEDS: ZOLPIDEM TARTRATE 10 MG TABLET PO PRN (20:15)
[2017-12-22] MEDS: LITHIUM CARBONATE 300 MG CAPSULE PO SCH ×2 (08:29→17:01)
[2017-12-22] MEDS: OMEPRAZOLE 20 MG CAPSULE PO SCH (08:29)
[2017-12-22] MEDS: CHOLECALCIFEROL (VIT D3) 1,000 UNITS TABLET PO SCH (08:29)
[2017-12-22] MEDS: DIVALPROEX SODIUM 500 MG DR TABLET PO SCH ×2 (08:29→17:01)
[2017-12-22 08:40] VITALS: BP 122/63
[2017-12-22] MEDS: LORazepam 2 MG TABLET PO PRN ×2 (13:55→18:28)
[2017-12-22 16:24] VITALS: BP 106/56
[2017-12-22] MEDS: ZOLPIDEM TARTRATE 10 MG TABLET PO PRN (21:13)
[2017-12-22] MEDS: HALOPERIDOL 10 MG TABLET PO SCH (21:13)
[2017-12-23 08:12] VITALS: BP 103/54
[2017-12-23] MEDS: DIVALPROEX SODIUM 500 MG DR TABLET PO SCH ×2 (09:32→16:20)
[2017-12-23] MEDS: LITHIUM CARBONATE 300 MG CAPSULE PO SCH ×2 (09:32→16:20)
[2017-12-23] MEDS: CHOLECALCIFEROL (VIT D3) 1,000 UNITS TABLET PO SCH (09:32)
[2017-12-23] MEDS: OMEPRAZOLE 20 MG CAPSULE PO SCH (09:32)
[2017-12-23 16:00] VITALS: BP 115/62
[2017-12-23] MEDS: HALOPERIDOL 10 MG TABLET PO SCH (20:04)
[2017-12-23] MEDS: LORazepam 2 MG TABLET PO PRN (20:04)
[2017-12-23] MEDS: ZOLPIDEM TARTRATE 10 MG TABLET PO PRN (20:04)
[2017-12-24 08:10] VITALS: BP 101/59
[2017-12-24] MEDS: LITHIUM CARBONATE 300 MG CAPSULE PO SCH ×2 (08:20→17:10)
[2017-12-24] MEDS: DIVALPROEX SODIUM 500 MG DR TABLET PO SCH ×2 (08:20→17:10)
[2017-12-24] MEDS: OMEPRAZOLE 20 MG CAPSULE PO SCH (08:20)
[2017-12-24] MEDS: CHOLECALCIFEROL (VIT D3) 1,000 UNITS TABLET PO SCH (08:21)
[2017-12-24] MEDS: LORazepam 2 MG TABLET PO PRN ×2 (12:56→18:59)
[2017-12-24] MEDS: HALOPERIDOL 10 MG TABLET PO SCH (21:14)
[2017-12-24] MEDS: ZOLPIDEM TARTRATE 10 MG TABLET PO PRN (21:14)
[2017-12-25 08:08] VITALS: BP 95/53
[2017-12-25] MEDS: CHOLECALCIFEROL (VIT D3) 1,000 UNITS TABLET PO SCH (08:12)
[2017-12-25] MEDS: DIVALPROEX SODIUM 500 MG DR TABLET PO SCH ×2 (08:13→17:19)
[2017-12-25] MEDS: OMEPRAZOLE 20 MG CAPSULE PO SCH (08:13)
[2017-12-25] MEDS: LITHIUM CARBONATE 300 MG CAPSULE PO SCH ×2 (08:13→17:19)
[2017-12-25] MEDS: LORazepam 2 MG TABLET PO PRN (17:00)
[2017-12-25] MEDS: IBUPROFEN 600 MG TABLET PO PRN (17:17)
[2017-12-25 17:21] VITALS: BP 126/91
[2017-12-25] MEDS: HALOPERIDOL 10 MG TABLET PO SCH (20:44)
[2017-12-25] MEDS: ZOLPIDEM TARTRATE 10 MG TABLET PO PRN (20:45)
[2017-12-26] MEDS: CHOLECALCIFEROL (VIT D3) 1,000 UNITS TABLET PO SCH (08:02)
[2017-12-26] MEDS: LITHIUM CARBONATE 300 MG CAPSULE PO SCH ×2 (08:02→17:01)
[2017-12-26] MEDS: DIVALPROEX SODIUM 500 MG DR TABLET PO SCH ×2 (08:02→17:01)
[2017-12-26] MEDS: OMEPRAZOLE 20 MG CAPSULE PO SCH (08:02)
[2017-12-26] MEDS: HALOPERIDOL 5 MG TABLET PO PRN (08:12)
[2017-12-26] MEDS: LORazepam 2 MG TABLET PO PRN ×2 (08:12→19:46)
[2017-12-26 09:31] VITALS: BP 109/61
[2017-12-26] MEDS: IBUPROFEN 600 MG TABLET PO PRN (17:01)
[2017-12-26] MEDS: ZOLPIDEM TARTRATE 10 MG TABLET PO PRN (19:46)
[2017-12-26] MEDS: HALOPERIDOL 10 MG TABLET PO SCH (20:28)
[2017-12-26 20:45] VITALS: BP 128/62
[2017-12-27 08:00] VITALS: BP 111/70
[2017-12-27] MEDS: OMEPRAZOLE 20 MG CAPSULE PO SCH (08:29)
[2017-12-27] MEDS: CHOLECALCIFEROL (VIT D3) 1,000 UNITS TABLET PO SCH (08:29)
[2017-12-27] MEDS: LITHIUM CARBONATE 300 MG CAPSULE PO SCH ×2 (08:30→16:51)
[2017-12-27 08:47] LABS: EOSINOPHILS % (AUTO) 5.3 % (1.0-6.0); HEMATOCRIT 45.8 % (41-53); HEMOGLOBIN 15.8 g/dL (13.5-17.5); LYMPHOCYTES # (AUTO) 2.1 K/uL (1.0-4.8); LYMPHOCYTES % (AUTO) 34.5 % (22.0-44.0); MEAN CORPUSCULAR HGB CONC 34.5 G/dL (31.0-37.0); MEAN CORPUSCULAR VOLUME 93 fL (80-100); MONOCYTES # (AUTO) 0.3 K/uL (0.1-1.0); MONOCYTES % (AUTO) 5.5 % (2.0-9.0); NEUTROPHILS # (AUTO) 3.3 K/uL (1.8-7.7); NEUTROPHILS % (AUTO) 53.7 % (40.0-70.0); PLATELET COUNT (AUTO) 176 K/uL (150-450); RED BLOOD CELL COUNT(AUTO) 4.95 MIL/uL (4.50-5.90); RED CELL DISTRIBUTION WIDTH 13.3 % (11.5-14.5)
[2017-12-27 08:55] LABS: LITHIUM 0.24 mmol/L (0.60-1.20)
[2017-12-27 09:02] LABS: ALANINE AMINOTRANSFERASE 21 U/L (12-78); ALBUMIN 3.5 g/dL (3.4-5.0); ALKALINE PHOSPHATASE 49 U/L (46-116); ANION GAP 9 mmol/L (8-16); ASPARTATE AMINOTRANSFERASE 10 U/L (15-37); BILIRUBIN,TOTAL 0.5 mg/dL (0.1-1.0); CALCIUM, TOTAL 8.8 mg/dL (8.8-10.5); CARBON DIOXIDE 26 mmol/L (22-29); CHLORIDE 104 mmol/L (98-107); GLOMERULAR FILTR. RATE CALC > 60 mL/min (>60); GLUCOSE,RANDOM 129 mg/dL (70-110); PHOSPHORUS 3.7 mg/dL (2.5-4.9); SODIUM SERUM 139 mmol/L (136-145); TOTAL PROTEIN, SERUM 6.5 g/dL (6.4-8.2); UREA NITROGEN, BLOOD 16 mg/dL (7-18); VALPROIC ACID 29 mcg/mL (50-100)
[2017-12-27] MEDS: DIVALPROEX SODIUM 500 MG DR TABLET PO SCH ×2 (09:52→16:51)
[2017-12-27] MEDS: LORazepam 2 MG TABLET PO PRN (14:53)
[2017-12-27 16:00] VITALS: BP 115/76
[2017-12-27] MEDS: HALOPERIDOL 10 MG TABLET PO SCH (20:08)
[2017-12-27] MEDS: ZOLPIDEM TARTRATE 10 MG TABLET PO PRN (20:08)
[2017-12-28 00:41] VITALS: BP 117/63
[2017-12-28 08:22] VITALS: BP 110/71
[2017-12-28] MEDS: CHOLECALCIFEROL (VIT D3) 1,000 UNITS TABLET PO SCH (08:26)
[2017-12-28] MEDS: DIVALPROEX SODIUM 500 MG DR TABLET PO SCH ×2 (08:26→15:40)
[2017-12-28] MEDS: OMEPRAZOLE 20 MG CAPSULE PO SCH (08:26)
[2017-12-28] MEDS: LITHIUM CARBONATE 300 MG CAPSULE PO SCH ×2 (08:26→15:40)
[2017-12-28] MEDS: IBUPROFEN 600 MG TABLET PO PRN (08:38)
[2017-12-28] MEDS: LORazepam 2 MG TABLET PO PRN ×2 (12:06→20:02)
[2017-12-28 16:00] VITALS: BP 105/61
[2017-12-28] MEDS: HALOPERIDOL 10 MG TABLET PO SCH (20:00)
[2017-12-28] MEDS: ZOLPIDEM TARTRATE 10 MG TABLET PO PRN (20:00)
[2017-12-29 08:00] VITALS: BP 119/69
[2017-12-29] MEDS: OMEPRAZOLE 20 MG CAPSULE PO SCH (08:15)
[2017-12-29] MEDS: LITHIUM CARBONATE 300 MG CAPSULE PO SCH ×2 (08:15→16:18)
[2017-12-29] MEDS: DIVALPROEX SODIUM 500 MG DR TABLET PO SCH ×2 (08:15→16:18)
[2017-12-29] MEDS: CHOLECALCIFEROL (VIT D3) 1,000 UNITS TABLET PO SCH (08:15)
[2017-12-29] MEDS: LORazepam 2 MG TABLET PO PRN ×2 (09:41→21:24)
[2017-12-29] MEDS: LOPERAMIDE HCL 2 MG CAPSULE PO PRN ×2 (09:41→11:55)
[2017-12-29] MEDS: IBUPROFEN 600 MG TABLET PO PRN (09:42)
[2017-12-29 17:17] VITALS: BP 127/71
[2017-12-29] MEDS: ZOLPIDEM TARTRATE 10 MG TABLET PO PRN (21:24)
[2017-12-29] MEDS: HALOPERIDOL 10 MG TABLET PO SCH (21:24)
[2017-12-30] MEDS: CHOLECALCIFEROL (VIT D3) 1,000 UNITS TABLET PO SCH (07:46)
[2017-12-30] MEDS: OMEPRAZOLE 20 MG CAPSULE PO SCH (07:46)
[2017-12-30] MEDS: LITHIUM CARBONATE 300 MG CAPSULE PO SCH ×2 (07:46→17:11)
[2017-12-30] MEDS: DIVALPROEX SODIUM 500 MG DR TABLET PO SCH ×2 (07:46→17:11)
[2017-12-30 08:04] VITALS: BP 102/58
[2017-12-30] MEDS: LORazepam 2 MG TABLET PO PRN ×2 (12:03→20:57)
[2017-12-30 19:00] VITALS: BP 116/68
[2017-12-30] MEDS: ZOLPIDEM TARTRATE 10 MG TABLET PO PRN (20:57)
[2017-12-30] MEDS: HALOPERIDOL 10 MG TABLET PO SCH (20:57)
[2017-12-31 10:14] VITALS: BP 130/86
[2017-12-31] MEDS: OMEPRAZOLE 20 MG CAPSULE PO SCH (10:28)
[2017-12-31] MEDS: DIVALPROEX SODIUM 500 MG DR TABLET PO SCH ×2 (10:28→18:01)
[2017-12-31] MEDS: CHOLECALCIFEROL (VIT D3) 1,000 UNITS TABLET PO SCH (10:28)
[2017-12-31] MEDS: LITHIUM CARBONATE 300 MG CAPSULE PO SCH ×2 (10:28→18:00)
[2017-12-31] MEDS: LORazepam 2 MG TABLET PO PRN (18:20)
[2017-12-31] MEDS: ZOLPIDEM TARTRATE 10 MG TABLET PO PRN (20:02)
[2017-12-31] MEDS: HALOPERIDOL 10 MG TABLET PO SCH (20:03)
[2017-12-31 20:38] VITALS: BP 109/73
[2018-01-01] MEDS: LITHIUM CARBONATE 300 MG CAPSULE PO SCH ×2 (08:27→16:40)
[2018-01-01] MEDS: DIVALPROEX SODIUM 500 MG DR TABLET PO SCH ×2 (08:27→16:40)
[2018-01-01] MEDS: CHOLECALCIFEROL (VIT D3) 1,000 UNITS TABLET PO SCH (08:27)
[2018-01-01] MEDS: OMEPRAZOLE 20 MG CAPSULE PO SCH (08:27)
[2018-01-01 10:22] VITALS: BP 117/62
[2018-01-01 17:39] VITALS: BP 104/62
[2018-01-01] MEDS: LORazepam 2 MG TABLET PO PRN (18:15)
[2018-01-01] MEDS: HALOPERIDOL 10 MG TABLET PO SCH (20:20)
[2018-01-01] MEDS: ZOLPIDEM TARTRATE 10 MG TABLET PO PRN (20:20)
[2018-01-02] MEDS: LITHIUM CARBONATE 300 MG CAPSULE PO SCH ×2 (08:03→16:53)
[2018-01-02] MEDS: DIVALPROEX SODIUM 500 MG DR TABLET PO SCH ×2 (08:04→16:53)
[2018-01-02] MEDS: LORazepam 2 MG TABLET PO PRN ×2 (08:04→16:53)
[2018-01-02] MEDS: OMEPRAZOLE 20 MG CAPSULE PO SCH (08:04)
[2018-01-02] MEDS: CHOLECALCIFEROL (VIT D3) 1,000 UNITS TABLET PO SCH (08:04)
[2018-01-02 08:14] VITALS: BP 121/58
[2018-01-02 17:26] VITALS: BP 114/64
[2018-01-02] MEDS: ZOLPIDEM TARTRATE 10 MG TABLET PO PRN (21:38)
[2018-01-02] MEDS: HALOPERIDOL 10 MG TABLET PO SCH (21:38)
[2018-01-03 08:19] VITALS: BP 116/72
[2018-01-03] MEDS: DIVALPROEX SODIUM 500 MG DR TABLET PO SCH ×2 (11:01→16:33)
[2018-01-03] MEDS: OMEPRAZOLE 20 MG CAPSULE PO SCH (11:01)
[2018-01-03] MEDS: LITHIUM CARBONATE 300 MG CAPSULE PO SCH ×2 (11:01→16:33)
[2018-01-03] MEDS: CHOLECALCIFEROL (VIT D3) 1,000 UNITS TABLET PO SCH (11:01)
[2018-01-03] MEDS: LORazepam 2 MG TABLET PO PRN ×2 (13:06→17:28)
[2018-01-03 17:00] VITALS: BP 109/74
[2018-01-03] MEDS: HALOPERIDOL 10 MG TABLET PO SCH (21:20)
[2018-01-03] MEDS: ZOLPIDEM TARTRATE 10 MG TABLET PO PRN (21:20)
[2018-01-04 03:00] VITALS: BP 119/81
[2018-01-04] MEDS: LORazepam 2 MG TABLET PO PRN ×3 (03:00→17:25)
[2018-01-04] MEDS: DIVALPROEX SODIUM 500 MG DR TABLET PO SCH ×2 (09:20→16:59)
[2018-01-04] MEDS: LITHIUM CARBONATE 300 MG CAPSULE PO SCH ×2 (09:21→16:59)
[2018-01-04] MEDS: CHOLECALCIFEROL (VIT D3) 1,000 UNITS TABLET PO SCH (09:21)
[2018-01-04] MEDS: OMEPRAZOLE 20 MG CAPSULE PO SCH (09:21)
[2018-01-04 09:35] VITALS: BP 125/64
[2018-01-04 16:47] VITALS: BP 101/59
[2018-01-04] MEDS: HALOPERIDOL 10 MG TABLET PO SCH (20:02)
[2018-01-04] MEDS: ZOLPIDEM TARTRATE 10 MG TABLET PO PRN (20:02)
[2018-01-05] MEDS: LITHIUM CARBONATE 300 MG CAPSULE PO SCH ×2 (07:50→16:21)
[2018-01-05] MEDS: DIVALPROEX SODIUM 500 MG DR TABLET PO SCH ×2 (07:50→16:20)
[2018-01-05] MEDS: OMEPRAZOLE 20 MG CAPSULE PO SCH (07:50)
[2018-01-05] MEDS: CHOLECALCIFEROL (VIT D3) 1,000 UNITS TABLET PO SCH (07:50)
[2018-01-05] MEDS: LORazepam 2 MG TABLET PO PRN ×2 (07:54→16:21)
[2018-01-05 08:03] VITALS: BP 111/87
[2018-01-05] MEDS: HALOPERIDOL 10 MG TABLET PO SCH (20:30)
[2018-01-05] MEDS: ZOLPIDEM TARTRATE 10 MG TABLET PO PRN (20:30)
[2018-01-05 22:16] VITALS: BP 122/77
[2018-01-06 01:20] VITALS: BP 103/62
[2018-01-06] MEDS: LORazepam 2 MG TABLET PO PRN ×2 (01:54→19:17)
[2018-01-06 08:15] VITALS: BP 92/53
[2018-01-06] MEDS: CHOLECALCIFEROL (VIT D3) 1,000 UNITS TABLET PO SCH (09:12)
[2018-01-06] MEDS: DIVALPROEX SODIUM 500 MG DR TABLET PO SCH ×2 (09:12→16:21)
[2018-01-06] MEDS: OMEPRAZOLE 20 MG CAPSULE PO SCH (09:12)
[2018-01-06] MEDS: LITHIUM CARBONATE 300 MG CAPSULE PO SCH ×2 (09:12→16:21)
[2018-01-06 17:08] VITALS: BP 135/93
[2018-01-06] MEDS: ZOLPIDEM TARTRATE 10 MG TABLET PO PRN (21:05)
[2018-01-06] MEDS: HALOPERIDOL 10 MG TABLET PO SCH (21:05)
[2018-01-07] MEDS: LORazepam 2 MG TABLET PO PRN ×3 (04:48→18:37)
[2018-01-07] MEDS: DIVALPROEX SODIUM 500 MG DR TABLET PO SCH ×2 (09:14→17:16)
[2018-01-07] MEDS: LITHIUM CARBONATE 300 MG CAPSULE PO SCH ×2 (09:14→17:16)
[2018-01-07] MEDS: CHOLECALCIFEROL (VIT D3) 1,000 UNITS TABLET PO SCH (09:14)
[2018-01-07] MEDS: OMEPRAZOLE 20 MG CAPSULE PO SCH (09:14)
[2018-01-07 10:38] VITALS: BP 107/70
[2018-01-07 16:58] VITALS: BP 110/75
[2018-01-07] MEDS: HALOPERIDOL 10 MG TABLET PO SCH (21:11)
[2018-01-07] MEDS: ZOLPIDEM TARTRATE 10 MG TABLET PO PRN (21:11)
[2018-01-08] MEDS: LORazepam 2 MG TABLET PO PRN ×2 (07:54→17:54)
[2018-01-08] MEDS: CHOLECALCIFEROL (VIT D3) 1,000 UNITS TABLET PO SCH (08:32)
[2018-01-08] MEDS: LITHIUM CARBONATE 300 MG CAPSULE PO SCH ×2 (08:32→16:56)
[2018-01-08] MEDS: DIVALPROEX SODIUM 500 MG DR TABLET PO SCH ×2 (08:32→16:56)
[2018-01-08] MEDS: OMEPRAZOLE 20 MG CAPSULE PO SCH (08:32)
[2018-01-08 08:55] VITALS: BP 111/60
[2018-01-08 18:33] VITALS: BP 126/79
[2018-01-08] MEDS: HALOPERIDOL 10 MG TABLET PO SCH (20:21)
[2018-01-08] MEDS: ZOLPIDEM TARTRATE 10 MG TABLET PO PRN (21:43)
[2018-01-09 09:24] VITALS: BP 110/70
[2018-01-09] MEDS: LITHIUM CARBONATE 300 MG CAPSULE PO SCH ×2 (10:46→17:52)
[2018-01-09] MEDS: CHOLECALCIFEROL (VIT D3) 1,000 UNITS TABLET PO SCH (10:46)
[2018-01-09] MEDS: DIVALPROEX SODIUM 500 MG DR TABLET PO SCH ×2 (10:46→17:52)
[2018-01-09] MEDS: OMEPRAZOLE 20 MG CAPSULE PO SCH (10:46)
[2018-01-09] MEDS: LORazepam 2 MG TABLET PO PRN ×2 (11:23→18:08)
[2018-01-09 19:23] VITALS: BP 107/58
[2018-01-09] MEDS: HALOPERIDOL 10 MG TABLET PO SCH (20:12)
[2018-01-09] MEDS: ZOLPIDEM TARTRATE 10 MG TABLET PO PRN (20:12)
[2018-01-10 08:05] VITALS: BP 115/67
[2018-01-10] MEDS: CHOLECALCIFEROL (VIT D3) 1,000 UNITS TABLET PO SCH (09:07)
[2018-01-10] MEDS: LORazepam 2 MG TABLET PO PRN ×2 (09:07→16:21)
[2018-01-10] MEDS: OMEPRAZOLE 20 MG CAPSULE PO SCH (09:08)
[2018-01-10] MEDS: DIVALPROEX SODIUM 500 MG DR TABLET PO SCH ×2 (09:08→16:22)
[2018-01-10] MEDS: LITHIUM CARBONATE 300 MG CAPSULE PO SCH ×2 (09:08→16:22)
[2018-01-10 17:00] VITALS: BP 112/70
[2018-01-10] MEDS: HALOPERIDOL 10 MG TABLET PO SCH (21:04)
[2018-01-11 09:23] VITALS: BP 109/72
[2018-01-11] MEDS: LORazepam 2 MG TABLET PO PRN ×2 (09:28→16:33)
[2018-01-11] MEDS: DIVALPROEX SODIUM 500 MG DR TABLET PO SCH ×2 (09:28→16:32)
[2018-01-11] MEDS: OMEPRAZOLE 20 MG CAPSULE PO SCH (09:28)
[2018-01-11] MEDS: LITHIUM CARBONATE 300 MG CAPSULE PO SCH ×2 (09:28→16:33)
[2018-01-11] MEDS: CHOLECALCIFEROL (VIT D3) 1,000 UNITS TABLET PO SCH (09:28)
[2018-01-11 16:59] VITALS: BP 116/62
[2018-01-11] MEDS: ZOLPIDEM TARTRATE 10 MG TABLET PO PRN (21:16)
[2018-01-11] MEDS: HALOPERIDOL 10 MG TABLET PO SCH (21:17)
[2018-01-12] MEDS: LITHIUM CARBONATE 300 MG CAPSULE PO SCH ×2 (08:09→16:48)
[2018-01-12] MEDS: CHOLECALCIFEROL (VIT D3) 1,000 UNITS TABLET PO SCH (08:09)
[2018-01-12] MEDS: OMEPRAZOLE 20 MG CAPSULE PO SCH (08:09)
[2018-01-12] MEDS: DIVALPROEX SODIUM 500 MG DR TABLET PO SCH ×2 (08:09→16:48)
[2018-01-12] MEDS: LORazepam 2 MG TABLET PO PRN ×2 (08:10→16:50)
[2018-01-12 09:48] VITALS: BP 110/57
[2018-01-12 17:23] VITALS: BP 112/71
[2018-01-12] MEDS: HALOPERIDOL 10 MG TABLET PO SCH (20:17)
[2018-01-12] MEDS: ZOLPIDEM TARTRATE 10 MG TABLET PO PRN (20:18)
[2018-01-13] MEDS: LITHIUM CARBONATE 300 MG CAPSULE PO SCH ×2 (08:28→16:53)
[2018-01-13] MEDS: DIVALPROEX SODIUM 500 MG DR TABLET PO SCH ×2 (08:28→16:53)
[2018-01-13] MEDS: CHOLECALCIFEROL (VIT D3) 1,000 UNITS TABLET PO SCH (08:28)
[2018-01-13] MEDS: OMEPRAZOLE 20 MG CAPSULE PO SCH (08:28)
[2018-01-13] MEDS: LORazepam 2 MG TABLET PO PRN ×2 (09:33→16:52)
[2018-01-13 09:38] VITALS: BP 127/72
[2018-01-13 18:20] VITALS: BP 99/58
[2018-01-13] MEDS: HALOPERIDOL 10 MG TABLET PO SCH (20:14)
[2018-01-13] MEDS: ZOLPIDEM TARTRATE 10 MG TABLET PO PRN (20:14)
[2018-01-14 08:15] VITALS: BP 132/78
[2018-01-14] MEDS: LORazepam 2 MG TABLET PO PRN (09:40)
[2018-01-14] MEDS: LITHIUM CARBONATE 300 MG CAPSULE PO SCH ×2 (09:41→17:06)
[2018-01-14] MEDS: OMEPRAZOLE 20 MG CAPSULE PO SCH (09:41)
[2018-01-14] MEDS: CHOLECALCIFEROL (VIT D3) 1,000 UNITS TABLET PO SCH (09:41)
[2018-01-14] MEDS: DIVALPROEX SODIUM 500 MG DR TABLET PO SCH ×2 (09:41→17:06)
[2018-01-14] MEDS: HALOPERIDOL 10 MG TABLET PO SCH (20:12)
[2018-01-14 20:25] VITALS: BP 106/72
[2018-01-14] MEDS: ZOLPIDEM TARTRATE 10 MG TABLET PO PRN (21:12)
[2018-01-15] MEDS: LORazepam 2 MG TABLET PO PRN ×3 (02:01→16:07)
[2018-01-15 02:03] VITALS: BP 106/63
[2018-01-15] MEDS: OMEPRAZOLE 20 MG CAPSULE PO SCH (08:33)
[2018-01-15] MEDS: LITHIUM CARBONATE 300 MG CAPSULE PO SCH ×2 (08:33→16:07)
[2018-01-15] MEDS: DIVALPROEX SODIUM 500 MG DR TABLET PO SCH ×2 (08:33→16:07)
[2018-01-15] MEDS: CHOLECALCIFEROL (VIT D3) 1,000 UNITS TABLET PO SCH (08:34)
[2018-01-15 16:00] VITALS: BP 134/92
[2018-01-15] MEDS: HALOPERIDOL 10 MG TABLET PO SCH (20:37)
[2018-01-15] MEDS: ZOLPIDEM TARTRATE 10 MG TABLET PO PRN (20:38)
[2018-01-16] MEDS: OMEPRAZOLE 20 MG CAPSULE PO SCH (08:54)
[2018-01-16] MEDS: LITHIUM CARBONATE 300 MG CAPSULE PO SCH ×2 (08:54→16:22)
[2018-01-16] MEDS: CHOLECALCIFEROL (VIT D3) 1,000 UNITS TABLET PO SCH (08:54)
[2018-01-16] MEDS: DIVALPROEX SODIUM 500 MG DR TABLET PO SCH ×2 (08:55→16:22)
[2018-01-16 10:00] VITALS: BP 116/77
[2018-01-16 17:03] VITALS: BP 105/68
[2018-01-16] MEDS: LORazepam 2 MG TABLET PO PRN (17:46)
[2018-01-16] MEDS: HALOPERIDOL 10 MG TABLET PO SCH (20:26)
[2018-01-16] MEDS: ZOLPIDEM TARTRATE 10 MG TABLET PO PRN (20:26)
[2018-01-17 08:04] VITALS: BP 107/53
[2018-01-17] MEDS: DIVALPROEX SODIUM 500 MG DR TABLET PO SCH ×2 (08:34→16:24)
[2018-01-17] MEDS: OMEPRAZOLE 20 MG CAPSULE PO SCH (08:34)
[2018-01-17] MEDS: LITHIUM CARBONATE 300 MG CAPSULE PO SCH ×2 (08:34→16:25)
[2018-01-17] MEDS: CHOLECALCIFEROL (VIT D3) 1,000 UNITS TABLET PO SCH (08:34)
[2018-01-17] MEDS: LORazepam 2 MG TABLET PO PRN ×2 (08:37→16:24)
[2018-01-17 09:03] LABS: LITHIUM 0.27 mmol/L (0.60-1.20)
[2018-01-17 17:25] VITALS: BP 130/78
[2018-01-17] MEDS: HALOPERIDOL 10 MG TABLET PO SCH (20:28)
[2018-01-17] MEDS: ZOLPIDEM TARTRATE 10 MG TABLET PO PRN (20:35)
[2018-01-18 03:24] VITALS: BP 115/82
[2018-01-18] MEDS: LORazepam 2 MG TABLET PO PRN ×3 (03:29→16:30)
[2018-01-18] MEDS: DIVALPROEX SODIUM 500 MG DR TABLET PO SCH ×2 (09:43→16:29)
[2018-01-18] MEDS: CHOLECALCIFEROL (VIT D3) 1,000 UNITS TABLET PO SCH (09:43)
[2018-01-18] MEDS: OMEPRAZOLE 20 MG CAPSULE PO SCH (09:43)
[2018-01-18] MEDS: LITHIUM CARBONATE 300 MG CAPSULE PO SCH ×2 (09:43→16:29)
[2018-01-18 11:29] VITALS: BP 128/87
[2018-01-18 19:50] VITALS: BP 105/50
[2018-01-18] MEDS: HALOPERIDOL 10 MG TABLET PO SCH (21:39)
[2018-01-18] MEDS: ZOLPIDEM TARTRATE 10 MG TABLET PO PRN (21:42)
[2018-01-19 08:55] VITALS: BP 107/63
[2018-01-19] MEDS: LITHIUM CARBONATE 300 MG CAPSULE PO SCH ×2 (09:16→16:25)
[2018-01-19] MEDS: OMEPRAZOLE 20 MG CAPSULE PO SCH (09:16)
[2018-01-19] MEDS: CHOLECALCIFEROL (VIT D3) 1,000 UNITS TABLET PO SCH (09:16)
[2018-01-19] MEDS: DIVALPROEX SODIUM 500 MG DR TABLET PO SCH ×2 (09:16→16:25)
[2018-01-19] MEDS: LORazepam 2 MG TABLET PO PRN ×2 (09:16→16:26)
[2018-01-19 20:18] VITALS: BP 111/68
[2018-01-19] MEDS: HALOPERIDOL 10 MG TABLET PO SCH (20:50)
[2018-01-19] MEDS: ZOLPIDEM TARTRATE 10 MG TABLET PO PRN (20:50)
[2018-01-20] MEDS: DIVALPROEX SODIUM 500 MG DR TABLET PO SCH ×2 (09:33→17:06)
[2018-01-20] MEDS: OMEPRAZOLE 20 MG CAPSULE PO SCH (09:33)
[2018-01-20] MEDS: LITHIUM CARBONATE 300 MG CAPSULE PO SCH ×2 (09:33→17:06)
[2018-01-20] MEDS: CHOLECALCIFEROL (VIT D3) 1,000 UNITS TABLET PO SCH (09:33)
[2018-01-20 09:46] VITALS: BP 106/64
[2018-01-20] MEDS: LORazepam 2 MG TABLET PO PRN ×2 (12:49→20:05)
[2018-01-20] MEDS: TERBINAFINE HCL 1% 30 GM CREAM TP SCH ×2 (15:07→20:05)
[2018-01-20 17:08] VITALS: BP 110/64
[2018-01-20] MEDS: HALOPERIDOL 10 MG TABLET PO SCH (20:04)
[2018-01-20] MEDS: ZOLPIDEM TARTRATE 10 MG TABLET PO PRN (20:04)
[2018-01-21] MEDS: CHOLECALCIFEROL (VIT D3) 1,000 UNITS TABLET PO SCH (08:42)
[2018-01-21] MEDS: LITHIUM CARBONATE 300 MG CAPSULE PO SCH ×2 (08:42→17:04)
[2018-01-21] MEDS: DIVALPROEX SODIUM 500 MG DR TABLET PO SCH ×2 (08:42→17:04)
[2018-01-21] MEDS: OMEPRAZOLE 20 MG CAPSULE PO SCH (08:42)
[2018-01-21] MEDS: TERBINAFINE HCL 1% 30 GM CREAM TP SCH ×2 (08:43→21:44)
[2018-01-21 09:52] VITALS: BP 108/62
[2018-01-21] MEDS: LORazepam 2 MG TABLET PO PRN ×2 (14:40→21:45)
[2018-01-21 16:00] VITALS: BP 123/82
[2018-01-21] MEDS: HALOPERIDOL 10 MG TABLET PO SCH (21:36)
[2018-01-21] MEDS: ZOLPIDEM TARTRATE 10 MG TABLET PO PRN (21:45)
[2018-01-22] MEDS: OMEPRAZOLE 20 MG CAPSULE PO SCH (10:26)
[2018-01-22] MEDS: CHOLECALCIFEROL (VIT D3) 1,000 UNITS TABLET PO SCH (10:26)
[2018-01-22] MEDS: DIVALPROEX SODIUM 500 MG DR TABLET PO SCH ×2 (10:26→16:23)
[2018-01-22] MEDS: LITHIUM CARBONATE 300 MG CAPSULE PO SCH ×2 (10:26→16:23)
[2018-01-22] MEDS: TERBINAFINE HCL 1% 30 GM CREAM TP SCH ×2 (10:26→21:38)
[2018-01-22 10:29] VITALS: BP 119/62
[2018-01-22] MEDS: LORazepam 2 MG TABLET PO PRN ×2 (10:33→21:38)
[2018-01-22] MEDS: IBUPROFEN 600 MG TABLET PO PRN (11:48)
[2018-01-22 20:08] VITALS: BP 110/71
[2018-01-22] MEDS: HALOPERIDOL 10 MG TABLET PO SCH (21:38)
[2018-01-22] MEDS: ZOLPIDEM TARTRATE 10 MG TABLET PO PRN (21:38)
[2018-01-23] MEDS: CHOLECALCIFEROL (VIT D3) 1,000 UNITS TABLET PO SCH (09:29)
[2018-01-23] MEDS: OMEPRAZOLE 20 MG CAPSULE PO SCH (09:29)
[2018-01-23] MEDS: DIVALPROEX SODIUM 500 MG DR TABLET PO SCH ×2 (09:30→16:20)
[2018-01-23] MEDS: LITHIUM CARBONATE 300 MG CAPSULE PO SCH ×2 (09:30→16:20)
[2018-01-23] MEDS: TERBINAFINE HCL 1% 30 GM CREAM TP SCH ×2 (09:34→22:00)
[2018-01-23 10:58] VITALS: BP 110/54
[2018-01-23] MEDS: LORazepam 2 MG TABLET PO PRN ×2 (11:03→22:08)
[2018-01-23 18:31] VITALS: BP 108/66
[2018-01-23] MEDS: HALOPERIDOL 10 MG TABLET PO SCH (22:00)
[2018-01-23] MEDS: ZOLPIDEM TARTRATE 10 MG TABLET PO PRN (22:08)
[2018-01-24] MEDS: OMEPRAZOLE 20 MG CAPSULE PO SCH (07:53)
[2018-01-24] MEDS: CHOLECALCIFEROL (VIT D3) 1,000 UNITS TABLET PO SCH (07:53)
[2018-01-24] MEDS: LITHIUM CARBONATE 300 MG CAPSULE PO SCH ×2 (07:53→16:31)
[2018-01-24] MEDS: TERBINAFINE HCL 1% 30 GM CREAM TP SCH ×2 (07:53→21:00)
[2018-01-24] MEDS: DIVALPROEX SODIUM 500 MG DR TABLET PO SCH ×2 (07:53→16:31)
[2018-01-24 08:02] VITALS: BP 139/84
[2018-01-24] MEDS: LORazepam 2 MG TABLET PO PRN ×2 (09:11→20:24)
[2018-01-24 17:05] VITALS: BP 121/85
[2018-01-24] MEDS: HALOPERIDOL 10 MG TABLET PO SCH (20:24)
[2018-01-24] MEDS: METHYL SALICYLATE/MENTHOL 85 GM CREAM TP SCH (21:00)
[2018-01-24] MEDS: ZOLPIDEM TARTRATE 10 MG TABLET PO PRN (21:43)
[2018-01-25 08:05] VITALS: BP 108/71
[2018-01-25] MEDS: LITHIUM CARBONATE 300 MG CAPSULE PO SCH ×2 (08:12→16:16)
[2018-01-25] MEDS: CHOLECALCIFEROL (VIT D3) 1,000 UNITS TABLET PO SCH (08:12)
[2018-01-25] MEDS: OMEPRAZOLE 20 MG CAPSULE PO SCH (08:12)
[2018-01-25] MEDS: DIVALPROEX SODIUM 500 MG DR TABLET PO SCH ×2 (08:12→16:16)
[2018-01-25] MEDS: LORazepam 2 MG TABLET PO PRN (08:15)
[2018-01-25] MEDS: TERBINAFINE HCL 1% 30 GM CREAM TP SCH ×2 (09:00→20:10)
[2018-01-25] MEDS: METHYL SALICYLATE/MENTHOL 85 GM CREAM TP SCH ×4 (09:00→20:10)
[2018-01-25 16:15] VITALS: BP 103/73
[2018-01-25] MEDS: ACETAMINOPHEN 325 MG TABLET PO PRN (16:16)
[2018-01-25 16:18] VITALS: BP 103/73
[2018-01-25] MEDS: ZOLPIDEM TARTRATE 10 MG TABLET PO PRN (20:09)
[2018-01-25] MEDS: HALOPERIDOL 10 MG TABLET PO SCH (20:09)
[2018-01-26 06:07] LABS: BASOPHILS % (AUTO) 0.8 % (0.0-2.0); EOSINOPHILS % (AUTO) 6.1 % (1.0-6.0); HEMATOCRIT 43.9 % (41-53); HEMOGLOBIN 15.1 g/dL (13.5-17.5); LYMPHOCYTES # (AUTO) 3.1 K/uL (1.0-4.8); LYMPHOCYTES % (AUTO) 44.2 % (22.0-44.0); MEAN CORPUSCULAR HEMOGLOBIN 31.9 pg (26.0-34.0); MEAN CORPUSCULAR HGB CONC 34.4 G/dL (31.0-37.0); MEAN CORPUSCULAR VOLUME 93 fL (80-100); MONOCYTES # (AUTO) 0.5 K/uL (0.1-1.0); MONOCYTES % (AUTO) 7.4 % (2.0-9.0); NEUTROPHILS % (AUTO) 41.5 % (40.0-70.0); PLATELET COUNT (AUTO) 177 K/uL (150-450); RED BLOOD CELL COUNT(AUTO) 4.74 MIL/uL (4.50-5.90); RED CELL DISTRIBUTION WIDTH 13.4 % (11.5-14.5)
[2018-01-26] MEDS: LORazepam 2 MG TABLET PO PRN ×2 (06:20→20:36)
[2018-01-26 06:30] LABS: ANION GAP 7 mmol/L (8-16); CALCIUM, TOTAL 8.7 mg/dL (8.8-10.5); CARBON DIOXIDE 29 mmol/L (22-29); CHLORIDE 105 mmol/L (98-107); CHOL/HDL RATIO 4.8 (4.2-7.3); CHOLESTEROL 138 mg/dL (131-200); GLOMERULAR FILTR. RATE CALC > 60 mL/min (>60); GLUCOSE,RANDOM 81 mg/dL (70-110); HDL CHOLESTEROL 29 mg/dL (40-60); LDL CHOL (CALC.) 80 mg/dL (0-130); PHOSPHORUS 4.2 mg/dL (2.5-4.9); POTASSIUM 4.1 mmol/L (3.5-5.1); SODIUM SERUM 141 mmol/L (136-145); THYROID STIMULATING HORMONE 2.17 uIU/mL (0.36-3.74); TRIGLYCERIDES 145 mg/dL (15-150); UREA NITROGEN, BLOOD 15 mg/dL (7-18)
[2018-01-26 08:05] VITALS: BP 97/69
[2018-01-26] MEDS: TERBINAFINE HCL 1% 30 GM CREAM TP SCH ×2 (09:00→21:00)
[2018-01-26] MEDS: DIVALPROEX SODIUM 500 MG DR TABLET PO SCH ×2 (10:10→17:02)
[2018-01-26] MEDS: OMEPRAZOLE 20 MG CAPSULE PO SCH (10:10)
[2018-01-26] MEDS: METHYL SALICYLATE/MENTHOL 85 GM CREAM TP SCH ×4 (10:10→21:00)
[2018-01-26] MEDS: LITHIUM CARBONATE 300 MG CAPSULE PO SCH ×2 (10:10→17:02)
[2018-01-26] MEDS: CHOLECALCIFEROL (VIT D3) 1,000 UNITS TABLET PO SCH (10:10)
[2018-01-26 16:37] VITALS: BP 118/68
[2018-01-26] MEDS: HALOPERIDOL 10 MG TABLET PO SCH (20:35)
[2018-01-26] MEDS: ZOLPIDEM TARTRATE 10 MG TABLET PO PRN (21:19)
[2018-01-27] MEDS: TERBINAFINE HCL 1% 30 GM CREAM TP SCH ×2 (09:00→20:25)
[2018-01-27] MEDS: OMEPRAZOLE 20 MG CAPSULE PO SCH (09:44)
[2018-01-27] MEDS: CHOLECALCIFEROL (VIT D3) 1,000 UNITS TABLET PO SCH (09:44)
[2018-01-27] MEDS: LITHIUM CARBONATE 300 MG CAPSULE PO SCH ×2 (09:44→16:48)
[2018-01-27] MEDS: DIVALPROEX SODIUM 500 MG DR TABLET PO SCH ×2 (09:44→16:47)
[2018-01-27] MEDS: LORazepam 2 MG TABLET PO PRN ×2 (10:01→16:48)
[2018-01-27] MEDS: METHYL SALICYLATE/MENTHOL 85 GM CREAM TP SCH ×4 (10:02→20:15)
[2018-01-27 10:10] VITALS: BP 107/65
[2018-01-27] MEDS: HALOPERIDOL 10 MG TABLET PO SCH (20:14)
[2018-01-27] MEDS: ZOLPIDEM TARTRATE 10 MG TABLET PO PRN (20:14)
[2018-01-27 21:39] VITALS: BP 111/67
[2018-01-28] MEDS: TERBINAFINE HCL 1% 30 GM CREAM TP SCH ×2 (09:00→20:05)
[2018-01-28 09:28] VITALS: BP 116/78
[2018-01-28] MEDS: LORazepam 2 MG TABLET PO PRN ×2 (09:28→16:31)
[2018-01-28] MEDS: OMEPRAZOLE 20 MG CAPSULE PO SCH (09:28)
[2018-01-28] MEDS: DIVALPROEX SODIUM 500 MG DR TABLET PO SCH ×2 (09:28→16:29)
[2018-01-28] MEDS: CHOLECALCIFEROL (VIT D3) 1,000 UNITS TABLET PO SCH (09:28)
[2018-01-28] MEDS: LITHIUM CARBONATE 300 MG CAPSULE PO SCH ×2 (09:28→16:29)
[2018-01-28] MEDS: ACETAMINOPHEN 325 MG TABLET PO PRN (09:29)
[2018-01-28] MEDS: METHYL SALICYLATE/MENTHOL 85 GM CREAM TP SCH ×4 (09:31→20:05)
[2018-01-28] MEDS: HALOPERIDOL 10 MG TABLET PO SCH (20:04)
[2018-01-28] MEDS: ZOLPIDEM TARTRATE 10 MG TABLET PO PRN (20:04)
[2018-01-28 20:19] VITALS: BP 137/77
[2018-01-29] MEDS: CHOLECALCIFEROL (VIT D3) 1,000 UNITS TABLET PO SCH (10:09)
[2018-01-29] MEDS: DIVALPROEX SODIUM 500 MG DR TABLET PO SCH ×2 (10:09→16:28)
[2018-01-29] MEDS: OMEPRAZOLE 20 MG CAPSULE PO SCH (10:09)
[2018-01-29] MEDS: METHYL SALICYLATE/MENTHOL 85 GM CREAM TP SCH ×4 (10:10→20:17)
[2018-01-29] MEDS: TERBINAFINE HCL 1% 30 GM CREAM TP SCH ×2 (10:10→20:16)
[2018-01-29] MEDS: LITHIUM CARBONATE 300 MG CAPSULE PO SCH ×2 (10:10→16:28)
[2018-01-29 10:51] VITALS: BP 125/66
[2018-01-29] MEDS: LORazepam 2 MG TABLET PO PRN (16:30)
[2018-01-29 19:03] VITALS: BP 110/64
[2018-01-29] MEDS: HALOPERIDOL 10 MG TABLET PO SCH (20:16)
[2018-01-30 04:21] VITALS: BP 118/68
[2018-01-30] MEDS: LORazepam 2 MG TABLET PO PRN ×3 (04:21→15:51)
[2018-01-30] MEDS: LITHIUM CARBONATE 300 MG CAPSULE PO SCH ×2 (09:52→17:24)
[2018-01-30] MEDS: OMEPRAZOLE 20 MG CAPSULE PO SCH (09:52)
[2018-01-30] MEDS: DIVALPROEX SODIUM 500 MG DR TABLET PO SCH ×2 (09:52→17:24)
[2018-01-30] MEDS: CHOLECALCIFEROL (VIT D3) 1,000 UNITS TABLET PO SCH (09:52)
[2018-01-30] MEDS: TERBINAFINE HCL 1% 30 GM CREAM TP SCH ×2 (09:55→21:42)
[2018-01-30] MEDS: METHYL SALICYLATE/MENTHOL 85 GM CREAM TP SCH ×4 (09:55→21:42)
[2018-01-30 10:40] VITALS: BP 91/52
[2018-01-30 17:41] VITALS: BP 134/78
[2018-01-30] MEDS: HALOPERIDOL 10 MG TABLET PO SCH (21:42)
[2018-01-30] MEDS: ZOLPIDEM TARTRATE 10 MG TABLET PO PRN (21:47)
[2018-01-31 07:46] LABS: LITHIUM 0.27 mmol/L (0.60-1.20)
[2018-01-31 08:22] VITALS: BP 148/94
[2018-01-31] MEDS: DIVALPROEX SODIUM 500 MG DR TABLET PO SCH ×2 (09:39→16:34)
[2018-01-31] MEDS: TERBINAFINE HCL 1% 30 GM CREAM TP SCH ×2 (09:40→20:56)
[2018-01-31] MEDS: METHYL SALICYLATE/MENTHOL 85 GM CREAM TP SCH ×4 (09:40→20:56)
[2018-01-31] MEDS: CHOLECALCIFEROL (VIT D3) 1,000 UNITS TABLET PO SCH (09:40)
[2018-01-31] MEDS: LITHIUM CARBONATE 300 MG CAPSULE PO SCH ×2 (09:40→16:34)
[2018-01-31] MEDS: OMEPRAZOLE 20 MG CAPSULE PO SCH (09:40)
[2018-01-31] MEDS: LORazepam 2 MG TABLET PO PRN ×2 (09:43→16:36)
[2018-01-31 17:17] VITALS: BP 120/79
[2018-01-31] MEDS: HALOPERIDOL 10 MG TABLET PO SCH (20:17)
[2018-01-31] MEDS: ZOLPIDEM TARTRATE 10 MG TABLET PO PRN (20:17)
[2018-02-01 04:10] VITALS: BP 119/63
[2018-02-01] MEDS: LORazepam 2 MG TABLET PO PRN ×2 (04:10→16:44)
[2018-02-01] MEDS: OMEPRAZOLE 20 MG CAPSULE PO SCH (08:22)
[2018-02-01] MEDS: CHOLECALCIFEROL (VIT D3) 1,000 UNITS TABLET PO SCH (08:22)
[2018-02-01] MEDS: LITHIUM CARBONATE 300 MG CAPSULE PO SCH ×2 (08:22→16:44)
[2018-02-01] MEDS: DIVALPROEX SODIUM 500 MG DR TABLET PO SCH ×2 (08:22→16:44)
[2018-02-01] MEDS: METHYL SALICYLATE/MENTHOL 85 GM CREAM TP SCH ×4 (08:23→20:44)
[2018-02-01] MEDS: TERBINAFINE HCL 1% 30 GM CREAM TP SCH ×2 (08:23→20:44)
[2018-02-01 11:14] VITALS: BP 103/59
[2018-02-01 18:47] VITALS: BP 135/71
[2018-02-01] MEDS: HALOPERIDOL 10 MG TABLET PO SCH (20:46)
[2018-02-01] MEDS: ZOLPIDEM TARTRATE 10 MG TABLET PO PRN (20:48)
[2018-02-02 09:00] VITALS: BP 110/62
[2018-02-02] MEDS: METHYL SALICYLATE/MENTHOL 85 GM CREAM TP SCH ×4 (09:00→20:20)
[2018-02-02] MEDS: TERBINAFINE HCL 1% 30 GM CREAM TP SCH ×2 (09:00→20:20)
[2018-02-02] MEDS: OMEPRAZOLE 20 MG CAPSULE PO SCH (09:45)
[2018-02-02] MEDS: LITHIUM CARBONATE 300 MG CAPSULE PO SCH ×2 (09:45→16:59)
[2018-02-02] MEDS: DIVALPROEX SODIUM 500 MG DR TABLET PO SCH ×2 (09:45→16:59)
[2018-02-02] MEDS: CHOLECALCIFEROL (VIT D3) 1,000 UNITS TABLET PO SCH (09:45)
[2018-02-02] MEDS: LORazepam 2 MG TABLET PO PRN ×2 (09:45→16:58)
[2018-02-02] MEDS: NICOTINE 21 MG/24 HOUR PATCH TD PRN (09:48)
[2018-02-02 19:27] VITALS: BP 90/50
[2018-02-02] MEDS: ZOLPIDEM TARTRATE 10 MG TABLET PO PRN (20:19)
[2018-02-02] MEDS: HALOPERIDOL 10 MG TABLET PO SCH (20:20)
[2018-02-03] MEDS: LORazepam 2 MG TABLET PO PRN ×2 (00:39→16:42)
[2018-02-03 01:01] VITALS: BP 103/67
[2018-02-03 08:54] VITALS: BP 130/77
[2018-02-03] MEDS: NICOTINE 21 MG/24 HOUR PATCH TD PRN (10:21)
[2018-02-03] MEDS: OMEPRAZOLE 20 MG CAPSULE PO SCH (10:21)
[2018-02-03] MEDS: TERBINAFINE HCL 1% 30 GM CREAM TP SCH ×2 (10:22→21:29)
[2018-02-03] MEDS: METHYL SALICYLATE/MENTHOL 85 GM CREAM TP SCH ×4 (10:22→21:29)
[2018-02-03] MEDS: DIVALPROEX SODIUM 500 MG DR TABLET PO SCH ×2 (10:22→16:42)
[2018-02-03] MEDS: LITHIUM CARBONATE 300 MG CAPSULE PO SCH ×2 (10:22→16:42)
[2018-02-03] MEDS: CHOLECALCIFEROL (VIT D3) 1,000 UNITS TABLET PO SCH (10:22)
[2018-02-03 16:56] VITALS: BP 120/83
[2018-02-03] MEDS: HALOPERIDOL 10 MG TABLET PO SCH (21:29)
[2018-02-04] MEDS: ZOLPIDEM TARTRATE 10 MG TABLET PO PRN ×2 (00:19→20:08)
[2018-02-04 09:00] VITALS: BP 115/70
[2018-02-04] MEDS: METHYL SALICYLATE/MENTHOL 85 GM CREAM TP SCH ×4 (09:00→20:07)
[2018-02-04] MEDS: TERBINAFINE HCL 1% 30 GM CREAM TP SCH ×2 (09:00→20:07)
[2018-02-04] MEDS: OMEPRAZOLE 20 MG CAPSULE PO SCH (09:26)
[2018-02-04] MEDS: CHOLECALCIFEROL (VIT D3) 1,000 UNITS TABLET PO SCH (09:26)
[2018-02-04] MEDS: LITHIUM CARBONATE 300 MG CAPSULE PO SCH ×2 (09:26→17:33)
[2018-02-04] MEDS: DIVALPROEX SODIUM 500 MG DR TABLET PO SCH ×2 (09:26→17:33)
[2018-02-04] MEDS: LORazepam 2 MG TABLET PO PRN ×2 (09:40→14:10)
[2018-02-04 18:36] VITALS: BP 131/75
[2018-02-04] MEDS: HALOPERIDOL 10 MG TABLET PO SCH (20:08)
[2018-02-05] MEDS: DIVALPROEX SODIUM 500 MG DR TABLET PO SCH ×2 (10:06→16:48)
[2018-02-05] MEDS: LITHIUM CARBONATE 300 MG CAPSULE PO SCH ×2 (10:06→16:48)
[2018-02-05] MEDS: OMEPRAZOLE 20 MG CAPSULE PO SCH (10:06)
[2018-02-05] MEDS: CHOLECALCIFEROL (VIT D3) 1,000 UNITS TABLET PO SCH (10:07)
[2018-02-05] MEDS: METHYL SALICYLATE/MENTHOL 85 GM CREAM TP SCH ×4 (10:10→20:51)
[2018-02-05] MEDS: TERBINAFINE HCL 1% 30 GM CREAM TP SCH ×2 (10:11→20:50)
[2018-02-05 10:58] VITALS: BP 105/55
[2018-02-05 16:15] VITALS: BP 128/77
[2018-02-05] MEDS: LORazepam 2 MG TABLET PO PRN (16:49)
[2018-02-05] MEDS: HALOPERIDOL 10 MG TABLET PO SCH (20:49)
[2018-02-05] MEDS ORDERED: ZOLPIDEM TARTRATE 10 MG TABLET PO PRN (21:00)
[2018-02-06 08:55] VITALS: BP 111/67
[2018-02-06] MEDS: TERBINAFINE HCL 1% 30 GM CREAM TP SCH ×2 (09:00→20:04)
[2018-02-06] MEDS: METHYL SALICYLATE/MENTHOL 85 GM CREAM TP SCH ×4 (09:00→20:04)
[2018-02-06] MEDS: DIVALPROEX SODIUM 500 MG DR TABLET PO SCH ×2 (09:36→16:35)
[2018-02-06] MEDS: CHOLECALCIFEROL (VIT D3) 1,000 UNITS TABLET PO SCH (09:36)
[2018-02-06] MEDS: LITHIUM CARBONATE 300 MG CAPSULE PO SCH ×2 (09:36→16:34)
[2018-02-06] MEDS: OMEPRAZOLE 20 MG CAPSULE PO SCH (09:39)
[2018-02-06] MEDS: NICOTINE 21 MG/24 HOUR PATCH TD PRN (09:40)
[2018-02-06] MEDS: HALOPERIDOL 5 MG TABLET PO PRN (09:42)
[2018-02-06 16:30] VITALS: BP 120/67
[2018-02-06] MEDS: ClonazePAM 0.5 MG TABLET PO SCH (20:02)
[2018-02-06] MEDS: HALOPERIDOL 10 MG TABLET PO SCH (20:03)
[2018-02-07 03:21] VITALS: BP 115/79
[2018-02-07 08:05] VITALS: BP 129/78
[2018-02-07] MEDS: METHYL SALICYLATE/MENTHOL 85 GM CREAM TP SCH ×4 (09:00→20:29)
[2018-02-07] MEDS: TERBINAFINE HCL 1% 30 GM CREAM TP SCH ×2 (09:00→20:28)
[2018-02-07] MEDS: CHOLECALCIFEROL (VIT D3) 1,000 UNITS TABLET PO SCH (09:39)
[2018-02-07] MEDS: DIVALPROEX SODIUM 500 MG DR TABLET PO SCH ×2 (09:39→16:39)
[2018-02-07] MEDS: OMEPRAZOLE 20 MG CAPSULE PO SCH (09:40)
[2018-02-07] MEDS: ClonazePAM 0.5 MG TABLET PO SCH ×3 (09:40→16:40)
[2018-02-07] MEDS: LITHIUM CARBONATE 300 MG CAPSULE PO SCH ×2 (09:41→16:39)
[2018-02-07] MEDS: NICOTINE 21 MG/24 HOUR PATCH TD PRN (09:42)
[2018-02-07 16:15] VITALS: BP 105/72
[2018-02-07] MEDS: HALOPERIDOL 10 MG TABLET PO SCH (20:26)
[2018-02-08 08:30] VITALS: BP 119/63
[2018-02-08] MEDS: TERBINAFINE HCL 1% 30 GM CREAM TP SCH ×2 (09:00→20:08)
[2018-02-08] MEDS: DIVALPROEX SODIUM 500 MG DR TABLET PO SCH ×2 (10:06→17:00)
[2018-02-08] MEDS: ClonazePAM 0.5 MG TABLET PO SCH ×3 (10:06→20:06)
[2018-02-08] MEDS: CHOLECALCIFEROL (VIT D3) 1,000 UNITS TABLET PO SCH (10:07)
[2018-02-08] MEDS: OMEPRAZOLE 20 MG CAPSULE PO SCH (10:07)
[2018-02-08] MEDS: LITHIUM CARBONATE 300 MG CAPSULE PO SCH ×2 (10:07→17:00)
[2018-02-08] MEDS: METHYL SALICYLATE/MENTHOL 85 GM CREAM TP SCH ×4 (10:11→20:08)
[2018-02-08 16:37] VITALS: BP 101/66
[2018-02-08] MEDS: HALOPERIDOL 10 MG TABLET PO SCH (20:06)
[2018-02-09 08:30] VITALS: BP 112/66
[2018-02-09] MEDS: TERBINAFINE HCL 1% 30 GM CREAM TP SCH ×2 (09:00→21:14)
[2018-02-09] MEDS: DIVALPROEX SODIUM 500 MG DR TABLET PO SCH ×2 (09:15→16:48)
[2018-02-09] MEDS: ClonazePAM 0.5 MG TABLET PO SCH ×3 (09:15→21:14)
[2018-02-09] MEDS: CHOLECALCIFEROL (VIT D3) 1,000 UNITS TABLET PO SCH (09:15)
[2018-02-09] MEDS: OMEPRAZOLE 20 MG CAPSULE PO SCH (09:15)
[2018-02-09] MEDS: LITHIUM CARBONATE 300 MG CAPSULE PO SCH ×2 (09:16→16:48)
[2018-02-09] MEDS: METHYL SALICYLATE/MENTHOL 85 GM CREAM TP SCH ×4 (09:18→21:14)
[2018-02-09 18:22] VITALS: BP 120/69
[2018-02-09] MEDS: HALOPERIDOL 10 MG TABLET PO SCH (21:14)
[2018-02-10 08:33] VITALS: BP 125/61
[2018-02-10] MEDS: TERBINAFINE HCL 1% 30 GM CREAM TP SCH ×2 (09:00→20:27)
[2018-02-10] MEDS: METHYL SALICYLATE/MENTHOL 85 GM CREAM TP SCH ×4 (09:00→20:03)
[2018-02-10] MEDS: DIVALPROEX SODIUM 500 MG DR TABLET PO SCH ×2 (09:27→17:51)
[2018-02-10] MEDS: ClonazePAM 0.5 MG TABLET PO SCH ×3 (09:28→20:01)
[2018-02-10] MEDS: LITHIUM CARBONATE 300 MG CAPSULE PO SCH ×2 (09:29→17:51)
[2018-02-10] MEDS: OMEPRAZOLE 20 MG CAPSULE PO SCH (09:29)
[2018-02-10] MEDS: CHOLECALCIFEROL (VIT D3) 1,000 UNITS TABLET PO SCH (09:29)
[2018-02-10 17:00] VITALS: BP 117/69
[2018-02-10] MEDS: HALOPERIDOL 10 MG TABLET PO SCH (20:01)
[2018-02-11 09:00] VITALS: BP 120/64
[2018-02-11] MEDS: TERBINAFINE HCL 1% 30 GM CREAM TP SCH ×2 (09:00→21:07)
[2018-02-11] MEDS: LITHIUM CARBONATE 300 MG CAPSULE PO SCH ×2 (09:29→16:28)
[2018-02-11] MEDS: ClonazePAM 0.5 MG TABLET PO SCH ×3 (09:29→21:08)
[2018-02-11] MEDS: DIVALPROEX SODIUM 500 MG DR TABLET PO SCH ×2 (09:29→16:28)
[2018-02-11] MEDS: OMEPRAZOLE 20 MG CAPSULE PO SCH (09:30)
[2018-02-11] MEDS: CHOLECALCIFEROL (VIT D3) 1,000 UNITS TABLET PO SCH (09:30)
[2018-02-11] MEDS: METHYL SALICYLATE/MENTHOL 85 GM CREAM TP SCH ×4 (09:31→21:07)
[2018-02-11 16:36] VITALS: BP 136/76
[2018-02-11] MEDS: HALOPERIDOL 10 MG TABLET PO SCH (21:06)
[2018-02-12 08:00] VITALS: BP 129/74
[2018-02-12] MEDS: TERBINAFINE HCL 1% 30 GM CREAM TP SCH ×2 (09:00→21:09)
[2018-02-12] MEDS: DIVALPROEX SODIUM 500 MG DR TABLET PO SCH ×2 (09:40→16:28)
[2018-02-12] MEDS: OMEPRAZOLE 20 MG CAPSULE PO SCH (09:40)
[2018-02-12] MEDS: ClonazePAM 0.5 MG TABLET PO SCH ×3 (09:40→21:09)
[2018-02-12] MEDS: LITHIUM CARBONATE 300 MG CAPSULE PO SCH ×2 (09:40→16:28)
[2018-02-12] MEDS: CHOLECALCIFEROL (VIT D3) 1,000 UNITS TABLET PO SCH (09:40)
[2018-02-12] MEDS: METHYL SALICYLATE/MENTHOL 85 GM CREAM TP SCH ×4 (10:01→21:09)
[2018-02-12 16:30] VITALS: BP 150/74
[2018-02-12] MEDS: HALOPERIDOL 10 MG TABLET PO SCH (21:09)
[2018-02-13 08:15] VITALS: BP 101/66
[2018-02-13] MEDS: CHOLECALCIFEROL (VIT D3) 1,000 UNITS TABLET PO SCH (08:50)
[2018-02-13] MEDS: METHYL SALICYLATE/MENTHOL 85 GM CREAM TP SCH ×4 (08:50→20:52)
[2018-02-13] MEDS: LITHIUM CARBONATE 300 MG CAPSULE PO SCH ×2 (08:50→16:39)
[2018-02-13] MEDS: TERBINAFINE HCL 1% 30 GM CREAM TP SCH ×2 (08:50→20:52)
[2018-02-13] MEDS: OMEPRAZOLE 20 MG CAPSULE PO SCH (08:50)
[2018-02-13] MEDS: DIVALPROEX SODIUM 500 MG DR TABLET PO SCH ×2 (08:50→16:39)
[2018-02-13] MEDS: ClonazePAM 0.5 MG TABLET PO SCH ×3 (08:50→20:02)
[2018-02-13 18:04] VITALS: BP 111/73
[2018-02-13] MEDS: HALOPERIDOL 10 MG TABLET PO SCH (20:02)
[2018-02-14] MEDS: OMEPRAZOLE 20 MG CAPSULE PO SCH (09:00)
[2018-02-14] MEDS: METHYL SALICYLATE/MENTHOL 85 GM CREAM TP SCH ×4 (09:00→20:17)
[2018-02-14 09:41] VITALS: BP 135/80
[2018-02-14] MEDS: CHOLECALCIFEROL (VIT D3) 1,000 UNITS TABLET PO SCH (09:50)
[2018-02-14] MEDS: DIVALPROEX SODIUM 500 MG DR TABLET PO SCH ×2 (09:50→16:06)
[2018-02-14] MEDS: LITHIUM CARBONATE 300 MG CAPSULE PO SCH ×2 (09:50→16:06)
[2018-02-14] MEDS: ClonazePAM 0.5 MG TABLET PO SCH ×3 (09:50→20:15)
[2018-02-14] MEDS: TERBINAFINE HCL 1% 30 GM CREAM TP SCH ×2 (09:52→20:17)
[2018-02-14 17:05] VITALS: BP 130/65
[2018-02-14] MEDS: HALOPERIDOL 10 MG TABLET PO SCH (20:15)
[2018-02-15] MEDS: LITHIUM CARBONATE 300 MG CAPSULE PO SCH ×2 (08:41→17:02)
[2018-02-15] MEDS: CHOLECALCIFEROL (VIT D3) 1,000 UNITS TABLET PO SCH (08:41)
[2018-02-15] MEDS: ClonazePAM 0.5 MG TABLET PO SCH ×3 (08:41→20:41)
[2018-02-15] MEDS: TERBINAFINE HCL 1% 30 GM CREAM TP SCH ×2 (08:42→20:42)
[2018-02-15] MEDS: METHYL SALICYLATE/MENTHOL 85 GM CREAM TP SCH ×4 (08:42→20:42)
[2018-02-15] MEDS: OMEPRAZOLE 20 MG CAPSULE PO SCH (08:43)
[2018-02-15] MEDS: DIVALPROEX SODIUM 500 MG DR TABLET PO SCH ×2 (08:43→17:02)
[2018-02-15 10:38] VITALS: BP 103/64
[2018-02-15 16:30] VITALS: BP 132/79
[2018-02-15] MEDS: HALOPERIDOL 10 MG TABLET PO SCH (20:42)
[2018-02-16] MEDS: TERBINAFINE HCL 1% 30 GM CREAM TP SCH ×2 (09:00→20:23)
[2018-02-16] MEDS: OMEPRAZOLE 20 MG CAPSULE PO SCH ×2 (09:00→09:23)
[2018-02-16 09:10] VITALS: BP 109/53
[2018-02-16] MEDS: ClonazePAM 0.5 MG TABLET PO SCH ×3 (09:22→20:21)
[2018-02-16] MEDS: LITHIUM CARBONATE 300 MG CAPSULE PO SCH ×2 (09:22→16:27)
[2018-02-16] MEDS: METHYL SALICYLATE/MENTHOL 85 GM CREAM TP SCH ×4 (09:23→20:23)
[2018-02-16] MEDS: DIVALPROEX SODIUM 500 MG DR TABLET PO SCH ×2 (09:23→16:27)
[2018-02-16] MEDS: CHOLECALCIFEROL (VIT D3) 1,000 UNITS TABLET PO SCH (09:23)
[2018-02-16] MEDS: HALOPERIDOL 10 MG TABLET PO SCH (20:21)
[2018-02-16 22:00] VITALS: BP 106/73
[2018-02-17 08:00] VITALS: BP 112/70
[2018-02-17] MEDS: METHYL SALICYLATE/MENTHOL 85 GM CREAM TP SCH ×4 (09:00→20:13)
[2018-02-17] MEDS: TERBINAFINE HCL 1% 30 GM CREAM TP SCH ×2 (09:00→20:14)
[2018-02-17] MEDS: CHOLECALCIFEROL (VIT D3) 1,000 UNITS TABLET PO SCH (10:20)
[2018-02-17] MEDS: LITHIUM CARBONATE 300 MG CAPSULE PO SCH ×2 (10:21→16:32)
[2018-02-17] MEDS: OMEPRAZOLE 20 MG CAPSULE PO SCH (10:21)
[2018-02-17] MEDS: DIVALPROEX SODIUM 500 MG DR TABLET PO SCH ×2 (10:21→16:32)
[2018-02-17] MEDS: ClonazePAM 0.5 MG TABLET PO SCH ×3 (10:23→20:13)
[2018-02-17 17:46] VITALS: BP 133/75
[2018-02-17] MEDS: HALOPERIDOL 10 MG TABLET PO SCH (20:12)
[2018-02-17] MEDS: QUEtiapine FUMARATE 100 MG TABLET PO SCH (20:13)
[2018-02-18 08:41] VITALS: BP 106/67
[2018-02-18] MEDS: METHYL SALICYLATE/MENTHOL 85 GM CREAM TP SCH ×4 (09:00→20:05)
[2018-02-18] MEDS: TERBINAFINE HCL 1% 30 GM CREAM TP SCH ×2 (09:00→20:05)
[2018-02-18] MEDS: ClonazePAM 0.5 MG TABLET PO SCH ×3 (09:59→20:04)
[2018-02-18] MEDS: DIVALPROEX SODIUM 500 MG DR TABLET PO SCH ×2 (09:59→16:50)
[2018-02-18] MEDS: OMEPRAZOLE 20 MG CAPSULE PO SCH (09:59)
[2018-02-18] MEDS: CHOLECALCIFEROL (VIT D3) 1,000 UNITS TABLET PO SCH (09:59)
[2018-02-18] MEDS: LITHIUM CARBONATE 300 MG CAPSULE PO SCH ×2 (09:59→16:49)
[2018-02-18 17:00] VITALS: BP 92/60
[2018-02-18] MEDS: QUEtiapine FUMARATE 100 MG TABLET PO SCH (20:03)
[2018-02-18] MEDS: HALOPERIDOL 10 MG TABLET PO SCH (20:03)
[2018-02-19 08:24] VITALS: BP 102/65
[2018-02-19] MEDS: METHYL SALICYLATE/MENTHOL 85 GM CREAM TP SCH ×4 (09:00→20:06)
[2018-02-19] MEDS: TERBINAFINE HCL 1% 30 GM CREAM TP SCH ×2 (09:00→20:07)
[2018-02-19] MEDS: ClonazePAM 0.5 MG TABLET PO SCH ×3 (10:17→20:05)
[2018-02-19] MEDS: OMEPRAZOLE 20 MG CAPSULE PO SCH (10:17)
[2018-02-19] MEDS: LITHIUM CARBONATE 300 MG CAPSULE PO SCH ×2 (10:17→16:04)
[2018-02-19] MEDS: DIVALPROEX SODIUM 500 MG DR TABLET PO SCH ×2 (10:18→16:04)
[2018-02-19] MEDS: CHOLECALCIFEROL (VIT D3) 1,000 UNITS TABLET PO SCH (10:18)
[2018-02-19 18:58] VITALS: BP 102/62
[2018-02-19] MEDS: HALOPERIDOL 10 MG TABLET PO SCH (20:04)
[2018-02-19] MEDS: QUEtiapine FUMARATE 100 MG TABLET PO SCH (20:06)
[2018-02-20] MEDS: ClonazePAM 0.5 MG TABLET PO SCH ×3 (08:54→21:30)
[2018-02-20] MEDS: LITHIUM CARBONATE 300 MG CAPSULE PO SCH ×2 (08:54→17:53)
[2018-02-20] MEDS: CHOLECALCIFEROL (VIT D3) 1,000 UNITS TABLET PO SCH (08:55)
[2018-02-20] MEDS: DIVALPROEX SODIUM 500 MG DR TABLET PO SCH ×2 (08:55→17:53)
[2018-02-20] MEDS: METHYL SALICYLATE/MENTHOL 85 GM CREAM TP SCH ×4 (08:55→21:28)
[2018-02-20] MEDS: OMEPRAZOLE 20 MG CAPSULE PO SCH (08:55)
[2018-02-20] MEDS: TERBINAFINE HCL 1% 30 GM CREAM TP SCH ×2 (08:55→21:27)
[2018-02-20 10:22] VITALS: BP 110/62
[2018-02-20] MEDS: QUEtiapine FUMARATE 100 MG TABLET PO SCH (21:30)
[2018-02-20] MEDS: HALOPERIDOL 10 MG TABLET PO SCH (21:31)
[2018-02-20 22:29] VITALS: BP 109/57
[2018-02-21] MEDS: TERBINAFINE HCL 1% 30 GM CREAM TP SCH ×2 (09:00→21:00)
[2018-02-21] MEDS: LITHIUM CARBONATE 300 MG CAPSULE PO SCH ×2 (09:06→16:56)
[2018-02-21] MEDS: CHOLECALCIFEROL (VIT D3) 1,000 UNITS TABLET PO SCH (09:06)
[2018-02-21] MEDS: DIVALPROEX SODIUM 500 MG DR TABLET PO SCH ×2 (09:06→16:56)
[2018-02-21] MEDS: OMEPRAZOLE 20 MG CAPSULE PO SCH (09:06)
[2018-02-21] MEDS: ClonazePAM 0.5 MG TABLET PO SCH ×3 (09:06→20:50)
[2018-02-21] MEDS: METHYL SALICYLATE/MENTHOL 85 GM CREAM TP SCH ×4 (10:32→21:02)
[2018-02-21 17:39] VITALS: BP 99/76
[2018-02-21] MEDS: HALOPERIDOL 10 MG TABLET PO SCH (20:48)
[2018-02-21] MEDS: QUEtiapine FUMARATE 100 MG TABLET PO SCH (20:48)
[2018-02-22] MEDS: TERBINAFINE HCL 1% 30 GM CREAM TP SCH (09:00)
[2018-02-22] MEDS: CHOLECALCIFEROL (VIT D3) 1,000 UNITS TABLET PO SCH (09:22)
[2018-02-22] MEDS: DIVALPROEX SODIUM 500 MG DR TABLET PO SCH ×2 (09:22→16:56)
[2018-02-22] MEDS: LITHIUM CARBONATE 300 MG CAPSULE PO SCH ×2 (09:22→16:56)
[2018-02-22] MEDS: OMEPRAZOLE 20 MG CAPSULE PO SCH (09:22)
[2018-02-22] MEDS: METHYL SALICYLATE/MENTHOL 85 GM CREAM TP SCH ×4 (09:22→20:17)
[2018-02-22] MEDS: ClonazePAM 0.5 MG TABLET PO SCH ×3 (09:22→20:16)
[2018-02-22 10:09] VITALS: BP 115/74
[2018-02-22 18:29] VITALS: BP 139/77
[2018-02-22] MEDS: QUEtiapine FUMARATE 100 MG TABLET PO SCH (20:14)
[2018-02-22] MEDS: HALOPERIDOL 10 MG TABLET PO SCH (20:14)
[2018-02-23 09:23] VITALS: BP 109/68
[2018-02-23] MEDS: OMEPRAZOLE 20 MG CAPSULE PO SCH (09:27)
[2018-02-23] MEDS: DIVALPROEX SODIUM 500 MG DR TABLET PO SCH ×2 (09:27→17:04)
[2018-02-23] MEDS: LITHIUM CARBONATE 300 MG CAPSULE PO SCH ×2 (09:27→17:04)
[2018-02-23] MEDS: CHOLECALCIFEROL (VIT D3) 1,000 UNITS TABLET PO SCH (09:27)
[2018-02-23] MEDS: ClonazePAM 0.5 MG TABLET PO SCH ×3 (09:27→20:39)
[2018-02-23] MEDS: METHYL SALICYLATE/MENTHOL 85 GM CREAM TP SCH ×4 (09:28→20:57)
[2018-02-23 16:30] VITALS: BP 103/56
[2018-02-23] MEDS: QUEtiapine FUMARATE 100 MG TABLET PO SCH (20:39)
[2018-02-23] MEDS: HALOPERIDOL 10 MG TABLET PO SCH (20:39)
[2018-02-24] MEDS: ClonazePAM 0.5 MG TABLET PO SCH ×3 (08:32→20:11)
[2018-02-24] MEDS: OMEPRAZOLE 20 MG CAPSULE PO SCH (08:32)
[2018-02-24] MEDS: DIVALPROEX SODIUM 500 MG DR TABLET PO SCH ×2 (08:32→16:20)
[2018-02-24] MEDS: CHOLECALCIFEROL (VIT D3) 1,000 UNITS TABLET PO SCH (08:32)
[2018-02-24] MEDS: LITHIUM CARBONATE 300 MG CAPSULE PO SCH ×2 (08:33→16:20)
[2018-02-24] MEDS: METHYL SALICYLATE/MENTHOL 85 GM CREAM TP SCH ×4 (08:33→21:00)
[2018-02-24 09:32] VITALS: BP 128/71
[2018-02-24 16:00] VITALS: BP 112/67
[2018-02-24] MEDS ORDERED: HEPATITIS B VIRUS VACCINE/PF 10 MCG/0.5 ML SYRINGE IM ONE (16:15)
[2018-02-24] MEDS ORDERED: HEPATITIS A VACCINE, INACTI [ADULT] 1,440 UNITS/ML VIAL IM ONE (16:15)
[2018-02-24] MEDS: HALOPERIDOL 10 MG TABLET PO SCH (20:11)
[2018-02-24] MEDS: QUEtiapine FUMARATE 100 MG TABLET PO SCH (20:11)
[2018-02-24 20:45] VITALS: BP 116/70
[2018-02-24] MEDS: IBUPROFEN 600 MG TABLET PO PRN (20:48)
[2018-02-25 08:30] VITALS: BP 126/77
[2018-02-25] MEDS: CHOLECALCIFEROL (VIT D3) 1,000 UNITS TABLET PO SCH (09:53)
[2018-02-25] MEDS: OMEPRAZOLE 20 MG CAPSULE PO SCH (09:53)
[2018-02-25] MEDS: LITHIUM CARBONATE 300 MG CAPSULE PO SCH ×2 (09:53→16:16)
[2018-02-25] MEDS: METHYL SALICYLATE/MENTHOL 85 GM CREAM TP SCH ×4 (09:53→21:00)
[2018-02-25] MEDS: ClonazePAM 0.5 MG TABLET PO SCH ×3 (09:53→21:04)
[2018-02-25] MEDS: DIVALPROEX SODIUM 500 MG DR TABLET PO SCH ×2 (09:53→16:16)
[2018-02-25 19:00] VITALS: BP 124/76
[2018-02-25] MEDS: QUEtiapine FUMARATE 100 MG TABLET PO SCH (21:04)
[2018-02-25] MEDS: HALOPERIDOL 10 MG TABLET PO SCH (21:04)
[2018-02-26 08:48] VITALS: BP 122/88
[2018-02-26] MEDS: LITHIUM CARBONATE 300 MG CAPSULE PO SCH ×2 (08:51→17:05)
[2018-02-26] MEDS: OMEPRAZOLE 20 MG CAPSULE PO SCH (08:51)
[2018-02-26] MEDS: ClonazePAM 0.5 MG TABLET PO SCH ×3 (08:51→20:39)
[2018-02-26] MEDS: CHOLECALCIFEROL (VIT D3) 1,000 UNITS TABLET PO SCH (08:51)
[2018-02-26] MEDS: DIVALPROEX SODIUM 500 MG DR TABLET PO SCH ×2 (08:51→17:04)
[2018-02-26] MEDS: METHYL SALICYLATE/MENTHOL 85 GM CREAM TP SCH ×4 (08:52→20:40)
[2018-02-26 19:11] VITALS: BP 103/65
[2018-02-26] MEDS: QUEtiapine FUMARATE 100 MG TABLET PO SCH (20:40)
[2018-02-26] MEDS: HALOPERIDOL 10 MG TABLET PO SCH (20:40)
[2018-02-27 08:30] VITALS: BP 114/73
[2018-02-27] MEDS: METHYL SALICYLATE/MENTHOL 85 GM CREAM TP SCH ×2 (09:00→12:38)
[2018-02-27] MEDS: ClonazePAM 0.5 MG TABLET PO SCH (09:56)
[2018-02-27] MEDS: DIVALPROEX SODIUM 500 MG DR TABLET PO SCH (09:56)
[2018-02-27] MEDS: CHOLECALCIFEROL (VIT D3) 1,000 UNITS TABLET PO SCH (09:56)
[2018-02-27] MEDS: LITHIUM CARBONATE 300 MG CAPSULE PO SCH (09:56)
[2018-02-27] MEDS: OMEPRAZOLE 20 MG CAPSULE PO SCH (09:56)
[2018-02-27] MEDS ORDERED: CLON.5 PO ×2 (11:20→11:52)
[2018-02-27] MEDS ORDERED: DIVA-78 PO ×2 (11:21→11:52)
[2018-02-27] MEDS ORDERED: HALO10 PO (11:53)
[2018-02-27] MEDS ORDERED: LITH300C3 PO (11:54)
[2018-02-27] MEDS ORDERED: QUET100T PO (11:54)
[2018-02-27] MEDS ORDERED: VITAD1000 PO (12:02)
[2018-02-27] MEDS ORDERED: METH57CR7 TP (12:03)
[2018-02-27] MEDS ORDERED: OMEP20 PO (12:03)
[2018-02-27] MEDS ORDERED: ALBU8HFA IH (12:07)
[2018-02-27] MEDS ORDERED: CLON-570 PO (12:08)
[2018-02-27] MEDS ORDERED: IBUP-2070 PO (12:09)
== END 2018-02-27 15:30 | DRG 750 ==
LOC: EMS 14:31 → B3A 10-20 08:11 → 3EC 10-20 20:10 → 3EI 12-30 16:45
PROVIDERS: ADMIT Psychiatry & Neurology Psychiatry; ATTEND Psychiatry & Neurology Psychiatry
PROC: 3E02340 Introduction of Influenza Vaccine into Muscle, Percutaneous Approach (ICD-10-PCS; principal; 2018-01-23)
PROC: 3E0234Z Introduction of Serum, Toxoid and Vaccine into Muscle, Percutaneous Approach (ICD-10-PCS; 2018-02-24)
PROC: 3E0234Z Introduction of Serum, Toxoid and Vaccine into Muscle, Percutaneous Approach (ICD-10-PCS; 2018-02-24)
DX: F20.0 Paranoid schizophrenia (principal); S05.32XA Ocular laceration without prolapse or loss of intraocular tissue, left eye, initial encounter; Z78.1 Physical restraint status; E55.9 Vitamin D deficiency, unspecified; R45.850 Homicidal ideations; F17.200 Nicotine dependence, unspecified, uncomplicated; G47.00 Insomnia, unspecified; F12.90 Cannabis use, unspecified, uncomplicated; F15.90 Other stimulant use, unspecified, uncomplicated; N52.9 Male erectile dysfunction, unspecified; Z71.6 Tobacco abuse counseling; Z71.41 Alcohol abuse counseling and surveillance of alcoholic; Z71.51 Drug abuse counseling and surveillance of drug abuser; Z79.899 Other long term (current) drug therapy; Z91.19 Patient's noncompliance with other medical treatment and regimen; Z72.89 Other problems related to lifestyle; X58.XXXA Exposure to other specified factors, initial encounter; Y93.89 Activity, other specified; Y92.89 Other specified places as the place of occurrence of the external cause; Y99.8 Other external cause status; Z23 Encounter for immunization
CPT/HCPCS: 70110; 70140; 83735; 84100; 84443; 87081; 90632; 90686; 93005; G0480; J1200; J1630; J2060